=== PATIENT | male | born 1965 | race Caucasian/White ===

== ENCOUNTER 2017-01-14 15:16 | Emergency (ER) | payer MEDICARE | END 2017-01-14 18:12 | disposition home or self-care (01) | LOC: D.ER 15:16 | DX: S05.01XA Injury of conjunctiva and corneal abrasion without foreign body, right eye, initial encounter (principal); W26.8XXA Contact with other sharp object(s), not elsewhere classified, initial encounter; Y93.89 Activity, other specified; Y92.89 Other specified places as the place of occurrence of the external cause; S05.61XA Penetrating wound without foreign body of right eyeball, initial encounter; F17.200 Nicotine dependence, unspecified, uncomplicated; E11.9 Type 2 diabetes mellitus without complications; F31.89 Other bipolar disorder ==

== ENCOUNTER 2017-02-13 19:08 | Inpatient (IN) | payer MEDICARE ==
[~2017-02-13] VITALS: Ht 193 cm; Wt 106.8 kg
[2017-02-13 19:39] LABS: BASOPHILS 0.2 % (0-2); EOSINOPHILS 1.2 % (0-7); HEMATOCRIT 49.9 % (42.0-54.0); IMMATURE GRANULOCYTES 0.2 % (0-5); LYMPHOCYTES 25.7 % (15-50); MCH 34.7 pg (26.0-34.0); MCHC 36.1 g/dL (31.0-37.0); MCV 96.3 fL (80.0-100.0); MEAN PLATELET VOLUME 11.3 fL (7.4-10.4); MONOCYTES 8.7 % (2-11); PLATELET COUNT 108 10x3/uL (130-400); RBC 5.18 10x6/uL (4.20-6.10); RDW 13.7 % (11.5-14.5); WBC 11.5 10x3/uL (4.8-10.8)
[2017-02-13 19:49] LABS: APPEARANCE CLEAR (CLEAR); BILIRUBIN NEGATIVE (NEGATIVE); COLOR YELLOW (YELLOW); GLUCOSE 500 mg/dL (NEGATIVE); KETONE NEGATIVE (NEGATIVE); LEUKOCYTE ESTERASE NEGATIVE (NEGATIVE); NITRITE NEGATIVE (NEGATIVE); PROTEIN NEGATIVE (NEGATIVE); SPECIFIC GRAVITY 1.015 (1.005-1.020); UROBILINOGEN NORMAL (NORMAL)
[2017-02-13 19:55] LABS: BACTERIA FEW /hpf (NONE SEEN); EPITHELIAL CELLS RARE /hpf (0-5); RED CELLS - URINE RARE /hpf (0-5); WHITE CELLS - URINE RARE /hpf (0-5)
[2017-02-13 20:21] LABS: ALBUMIN 3.5 g/dL (3.4-5.0); ALKALINE PHOSPHATASE 169 U/L (46-116); ALT (SGPT) 55 U/L (10-68); BILIRUBIN - TOTAL 0.42 mg/dL (0.2-1.3); CALC OSMOLALITY 282 mosm/kg (275-300); CALCIUM 8.4 mg/dL (8.5-10.1); CARBON DIOXIDE 25.7 mmol/L (21.0-32.0); CHLORIDE - SERUM 101 mmol/L (98-107); CKMB 2.5 U/L (0.0-3.6); CREATINE KINASE 257 UL (21-232); CREATININE - SERUM 0.8 mg/dL (0.6-1.3); GLUCOSE 257 mg/dL (74-106); POTASSIUM - SERUM 3.6 mmol/L (3.5-5.1); PROTEIN - SERUM 7.4 g/dL (6.4-8.2); SODIUM 137 mmol/L (136-145); THYROID STIMULATING HORMONE 2.32 uIU/mL (0.36-3.74); TROPONIN-I < 0.017 ng/mL (0.000-0.060); UREA NITROGEN 12 mg/dL (7-18); eGFR NON AFRICAN AMERICAN > 90 mL/min (90-120)
--- NOTE | 2017-02-13 22:25 | NUR ---
RECIEVED REPORT FROM RN IN ER ABOUT PATIENT. AWAITING PT ARRIVAL.
[2017-02-13 22:40] VITALS: BP 139/97
--- NOTE | 2017-02-13 22:40 | NUR ---
PT ARRIVED TO UNIT VIA STRETCHER, MOVED SELF TO ICU BED. PIV IN R WRIST AND R FA. R FA WITH NS @ 150 AND CARDIZEM AT 5 ON ARRIVAL - THIS WAS TURNED UP TO 10MG/HR PER ORDERS. ROCHEPHIN HAD FINISHED IN PIV R WRIST, THIS WAS REVMOVED AND SALINE LOCKED. DENIES PAIN, THOUGH COMPLAINED OF DISCOMFORT TO RIGHT RIB AREA, BUT NOT IN PAIN PER PATIENT. PERLLA. PPP. S1S2 AUSCULTATED, A. FIB. NOTED ON MONITOR AT RATE OF 81. RR EVEN AND SHALLOW, LEFT LOBES WITH CRACKLES, RUL, RML CLEAR, RLL DIMINISHED, RATE OF 12 PER MIN.. BP 139/97. BS ACTIVE X4, ABDOMEN NOMAL FOR PATIENT ROUND AND SOFT - STATES THAT ITS NOT TENDER YET GRIMACES TO TOUCH, STATES HAS BEEN PASSING GAS TODAY AND HAD A BM THIS AM. ARRIVED ON NC @ 2.5L AND SPO2 97%. TEMP 98.4 TEMPORALLY. ARRIVED WITH SOME PERSONAL BELONGINGS, FLIP FLOPS, LEATHER BELT, BLUE JEANS, WALLET (REFUSED TO SEND TO SAFE, STATES NOTHING OF VALUE IN WALLET I.E. MONEY), SILVER BRACLET, LG SMARTPHONE AND TRIAGE CLINICIAN FOR PHONE. DAUGHTER IN ROOM SHORTLY AFTER ARRIVAL. ANSWERED ALL QUESTIONS AND PT STABLE. WILL CPOC.
[2017-02-13 22:53] LABS: CKMB 1.2 U/L (0.0-3.6); CREATINE KINASE 205 UL (21-232); TROPONIN-I 0.024 ng/mL (0.000-0.060)
[2017-02-13 23:00] VITALS: BP 143/97
[2017-02-13 23:02] VITALS: BP 139/97; BMI 27.9
[2017-02-13] MEDS ORDERED: SEROQUEL400 MG PO (23:06)
[2017-02-13] MEDS ORDERED: LITHIUM CARBON300 MG PO (23:06)
[2017-02-13] MEDS ORDERED: KLONOPIN1 MG PO (23:07)
[2017-02-13] MEDS ORDERED: AMBIEN5 MG PO (23:08)
[2017-02-13] MEDS ORDERED: GLUCOPHAGE500 MG PO (23:10)
--- NOTE | 2017-02-13 23:42 | NUR ---
DAUGHTER REQUESTED PATIENT HAVE A FOOD TRY BEFORE SHE LEFT, THIS WAS PROVIDED TO THE PATIENT AND SOMETHING TO DRINK WELL. PT DENIES ANY OTHER NEEDS ATT. BED LOW AND LOCKED, CALL LIGHT IN REACH. WILL CPOC.
[2017-02-14] VITALS (24 sets, daily range): BP systolic 88–139; BP diastolic 0–91; Ht 193 cm; Wt 106.8 kg
--- NOTE | 2017-02-14 01:14 | NUR ---
SLEEPING, VSS, BED LOW AND LOCKED, CALL LIGHT IN REACH. WILL CPOC.
--- NOTE | 2017-02-14 03:00 | NUR ---
REASSESSMENT COMPLETE, PLEASE SEE FLOW SHEETS FOR DETAILS. DENIES PAIN/NEEDS ATT. BED LOW AND LOCKED, CALL LIGHT IN REACH. VSS, WILL CPOC.
--- NOTE | 2017-02-14 05:00 | NUR ---
C/O PAIN 7/10 IN RIGHT RIB AREA, WILL CALL E.R. ADMITTING MD FOR PAIN MED ORDERS. VSS ATT, ECG SHOWS CONVERSION FROM A.FIB. TO SR RATE OF 58. BED LOW AND LOCKED, CALL LIGHT IN REACH. WILL CPOC.
--- NOTE | 2017-02-14 05:10 | NUR ---
ATTEMPTED TO REACH E.R. DOC, WAS UNSUCCESSFUL, WILL TRY AGAIN.
[2017-02-14 05:17] LABS: CKMB 1.2 U/L (0.0-3.6); CREATINE KINASE 136 UL (21-232)
[2017-02-14 05:18] LABS: TROPONIN-I < 0.017 ng/mL (0.000-0.060)
--- NOTE | 2017-02-14 05:20 | NUR ---
WAS ABLE TO REACH Arlen MARTI, NEW ORDERS RECIEVED FOR PAIN MEDS.
--- NOTE | 2017-02-14 08:26 | NUR ---
SPO2 86% ON 4LNC, STARTED I.S. MS GIVEN FOR R SIDED RIB PAIN. PT UNWILLING TO COUGH AND DEEP BREATH. DR URRUTIA NOTIFIED.
--- NOTE | 2017-02-14 09:43 | NUR ---
DR SHORE HERE.
[2017-02-14 12:44] LABS: CKMB 0.9 U/L (0.0-3.6); CREATINE KINASE 98 UL (21-232); TROPONIN-I 0.018 ng/mL (0.000-0.060)
--- NOTE | 2017-02-14 15:07 | NUR ---
PT CONTINUES TO HAVE DIFFICULTY WITH COUGH AND DEEP BREATH. OOB AND AMB WITH 4LO2. SAT UP IN CHAIR. ENCOURAGED TO COUGH AND DEEP BREATH.
--- NOTE | 2017-02-14 16:28 | NUR ---
SPO2 88% ON 4LNC, PT UP IN CHAIR. PT VOIDED 1000ML CL YELLOW URINE. ENCOURAGED PT TO COUGH AND DEEP BREATH. ENCOURAGED PT TO USE I.S. PT COUGHS UP YELLOW THICK SPUTUM. 90% AFTER COUGHING AND DEEP BREATHING.
--- NOTE | 2017-02-14 16:54 | NUR ---
HD IN PROGRESS.
--- NOTE | 2017-02-14 19:05 | NUR ---
REPORT RECIEVED, SHIFT ASSESSMENT COMPLETE, PT IS ALERT AND ORIENTED, ON 5L NC WITH 92% O2 SAT. CRACKLES HEARD IN B/L UPPER LOBES, DIMINISHED IN B/L LOWER LOBES, S1S2, CM-NSR, PATENT RIGHT FA PIV WITH NS INFUSING VIA PUMP, PATENT RIGHT WRIST PIV S/L, ABDOMEN IS SOFT AND ROUND WITH ACTIVE BS, URINAL AT BEDSIDE, ALL PPP, VSS, CALL LIGHT IN REACH
--- NOTE | 2017-02-14 21:15 | NUR ---
FAMILY AT BEDSIDE, MARBELLA GIVEN
--- NOTE | 2017-02-14 23:12 | NUR ---
REASSESSMENT COMPLETE, NO CHANGES NOTED, PT RESTING AT THIS TIME, DENIES ANY WANTS OR NEEDS, VSS, CALL LIGHT IN REACH
[2017-02-15] VITALS (24 sets, daily range): BP systolic 87–158; BP diastolic 62–102
--- NOTE | 2017-02-15 01:02 | NUR ---
NO NEEDS NOTED AT THIS TIME, WILL CON'T TO MONITOR
--- NOTE | 2017-02-15 03:01 | NUR ---
REASSESSMENT COMPLETE, NO CHANGES NOTED, LAB IN ROOM TO DRAW AM LAB, PT TOLERATED WELL, NO OTHER NEEDS NOTED, VSS, CALL LIGHT IN REACH
[2017-02-15 03:12] LABS: BASOPHILS 0 % (0-2); EOSINOPHILS 1.4 % (0-7); HEMATOCRIT 41.2 % (42.0-54.0); IMMATURE GRANULOCYTES 0.1 % (0-5); LYMPHOCYTES 24.1 % (15-50); MCH 33.6 pg (26.0-34.0); MCHC 33.7 g/dL (31.0-37.0); MEAN PLATELET VOLUME 11.3 fL (7.4-10.4); MONOCYTES 8.4 % (2-11); RDW 13.4 % (11.5-14.5)
[2017-02-15 03:18] LABS: HEMOGLOBIN 13.9 g/dL (13.5-17.5); MCV 99.5 fL (80.0-100.0); PLATELET COUNT 52 10x3/uL (130-400); RBC 4.14 10x6/uL (4.20-6.10); WBC 7.2 10x3/uL (4.8-10.8)
[2017-02-15 03:22] LABS: CALC OSMOLALITY 281 mosm/kg (275-300); CALCIUM 7.8 mg/dL (8.5-10.1); CARBON DIOXIDE 31.8 mmol/L (21.0-32.0); CHLORIDE - SERUM 105 mmol/L (98-107); CREATININE - SERUM 0.8 mg/dL (0.6-1.3); POTASSIUM - SERUM 3.5 mmol/L (3.5-5.1); SODIUM 139 mmol/L (136-145); UREA NITROGEN 10 mg/dL (7-18); eGFR NON AFRICAN AMERICAN > 90 mL/min (90-120)
[2017-02-15 03:27] LABS: GLUCOSE 184 mg/dL (74-106)
[2017-02-15 03:45] LABS: PLATELET ESTIMATE DECREASED; PLATELET MORPHOLOGY NORMAL PLT MORPH
--- NOTE | 2017-02-15 05:00 | NUR ---
PT COMPLAINING OF PAIN ON THE RIGHT SIDE TREATED WITH PAIN MEDS ORDERED. WILL CONTINUE TO MONITOR PT.
[2017-02-15 05:25] LABS: UDS - AMPHET NEGATIVE QUAL (NEGATIVE); UDS - BARB NEGATIVE QUAL (NEGATIVE); UDS - BENZO NEGATIVE QUAL (NEGATIVE); UDS - COCAINE NEGATIVE QUAL (NEGATIVE); UDS - METH NEGATIVE QUAL (NEGATIVE); UDS - OPIATE POSITIVE QUAL (NEGATIVE); UDS - PCP NEGATIVE QUAL (NEGATIVE); UDS - THC NEGATIVE QUAL (NEGATIVE)
--- NOTE | 2017-02-15 07:00 | NUR ---
PT AWAKE ALERT AND ORIENTED X4, FOLLOWS COMMANDS WITH NO DEFICITS NOTED. NORMAL SINUS ON MONITOR. O2 DECREASED TO 4L AND PT TOLERATING WELL WITH O2 SAT >95%. PT USING IS AND PULLING 750 WITH RT AT BEDSIDE, ENCOURAGING PT TO TURN COUGH AND DEEP BREATHE FREQUENTLY. DENIES PAIN AT THIS TIME. PT ABLE TO GET UP OUT OF BED TO USE URINAL INDEPENDENTLY. DR URRUTIA SAW PT AND STATES THAT IF OTHER PHYSICIANS AGREE TODAY PT MAY TRANSFER TO FLOOR. COMPLETE SHIFT ASSESSMENT DOCUMENTED PER FLOWSHEET. WILL CONTINUE TO MONITOR
--- NOTE | 2017-02-15 08:00 | NUR ---
PT SAT UP AND ATE BREAKFAST INDEPENDENTLY. NO CHANGES FROM PREVIOUS NOTE. CALL LIGHT WITHIN REACH, WILL CONTINUE TO MONITOR
--- NOTE | 2017-02-15 10:00 | NUR ---
PT UP ON SIDE OF BED TO URINAL INDEPENDENTLY. BREATHING LABORED WHEN TRANSFERRING TO SIDE OF BED. O2 SAT REMAINS STABLE. ENCOURAGED PT TO TAKE IT SLOW WHEN MOVING AND DEEP BREATHE.
--- NOTE | 2017-02-15 11:30 | NUR ---
PT USING YAUNKER SUCTION WHILE COUGHING UP SPUTUM. WORKING ON USING IS AND PULLING 1500 AT THIS TIME. O2 SAT STABLE. SAT UP IN BED AND EATING LUNCH INDEPENDENTLY
--- NOTE | 2017-02-15 11:47 | NUR ---
* Is the patient Alert and Oriented? Yes 0 * How many steps to enter\exit or inside your home? 8 0 * PCP Dr. Grant in [place] 0 * Pharmacy [facility] on [place] & [facility] 0 * Preadmission Environment Home with Family 0 * ADLs Independent 0 * List name and contact numbers for known caregivers / representatives who currently or will assist patient after discharge: Daughter - Lesley Russell [phone] 0 * Additional services required to return to the preadmission environment? No 0 * Can the patient safely return to the preadmission environment? Yes 0 * Has this patient been hospitalized within the prior 30 days at any hospital? No Patient Name: KATELYN FORMAN Admission Status: ER Accout number: [id number] Admission Date: 02-13-2017 : 1965 Admission Diagnosis: Attending: EUGENIA Current LOS: 2 Anticipated DC Date: 02-17-2017 Planned Disposition: Home Primary Insurance: MEDICARE A & B Discharge Planning Comments: CM met with patient to assess dc plans/needs. Patient states he lives with his adult daughter, Lesley. He reports he is independent with all ADL's & IADL's. He does not use any assistive devices and has not had home health services in the past. At dc, he will return home with his daughter. No needs identified or verbalized at this time. CM will follow. Seismic Computer: Sasha Barron
--- NOTE | 2017-02-15 13:20 | NUR ---
PT DENIES PAIN OR DISCOMFORT AT THIS TIME. VITAL SIGNS STABLE. WILL CONTINUE TO MONITOR CLOSELY.
--- NOTE | 2017-02-15 14:26 | CN ---
PATIENT NAME:KATELYN FORMAN MEDICAL RECORD: [id number] : 63 LOCATION:[facility]YANA[facility].2307 ADMIT DATE: 02/13/17 ACCOUNT: [id number] CONSULTING PHYSICIAN: JED GONZALEZ MD REFERRING PHYSICIAN: KRISTINE URRUTIA DO DATE OF CONSULTATION: 02/14/2017 Psychiatric Consultation IDENTIFYING DATA: The patient is 51 years old and he is admitted to the hospital on a voluntary basis. CHIEF COMPLAINT: Pneumonia. HISTORY OF PRESENT ILLNESS: The patient presented to the hospital today with atrial fibrillation, syncope and a left lower lobe infiltrate. He is admitted to the intensive care for evaluation and treatment. The patient has a psychiatric history and has been [place] a psychiatrist [place]. He says he takes lithium, Seroquel, Klonopin and Ambien. Says he has been out of his medications for several weeks with the exception of the lithium, which he has been taking a modest amount. He has no psychotic symptoms. No saritha and no depression, no evidence of acute risk to himself or others. MENTAL STATUS EXAMINATION: The patient is awake, alert and oriented to person, place, time and situation. His mood is euthymic. His affect appropriate. Thought processes are goal directed. Memory, concentration and abstract abilities are intact. He has no thoughts of harming himself or others or psychotic symptoms. ASSESSMENT: 1. Bipolar disorder by history. 2. Alcohol abuse. PLAN: The patient is not appropriate to take a benzodiazepine or Ambien, given his history of alcohol abuse. He may or may not have an accurate legitimate diagnosis of bipolar disorder. He is certainly not showing any symptoms or evidence of the disease now. I am going to restart him on lithium, but at a lower dose of 300 mg twice daily and would recommend that a lithium level be obtained in a few days with the goal of titrating him up to about 0.8 mEq. In addition to this, I am not going to give him 800 mg of Seroquel. It is highly sedating, very much favored by substance abusers and alcoholics and this patient has pneumonia. I do not want to suppress respiration. With no evidence of psychotic symptoms, I am going to start him on a lower dose and will let additional adjustments in his psychiatric medications be made by his outpatient psychiatrist at [facility]. TRANSINT:[id number] Voice Confirmation ID: [id number] DOCUMENT ID: [id number] CONSULT REPORT [id number] KATELYN FORMAN PETER MD at 1426 CC: [id number] DICTATION DATE: 02/14/17 1405 QUARTER SEAMER: 02/14/17 1542 ADM IN [place] [address] [place] [address]
--- NOTE | 2017-02-15 15:00 | NUR ---
NO CHANGES IN PT STATUS FROM PREVIOUS NOTE. VITAL SIGNS STABLE AND O2 SAT REMAINS WNL ON 3L NC. WILL CONTINUE TO MONITOR
--- NOTE | 2017-02-15 16:11 | CN ---
PATIENT NAME:KATELYN FORMAN MEDICAL RECORD: [id number] : 63 LOCATION:YI.2307 ADMIT DATE: 02/13/17 ACCOUNT: [id number] CONSULTING PHYSICIAN: RUBEN SHORE MD REFERRING PHYSICIAN: KRISTINE URRUTIA DO DATE OF CONSULTATION: 02/14/2017 HISTORY OF PRESENT ILLNESS: A 51-year-old gentleman with no known history of coronary artery disease, has a history of diabetes mellitus, bipolar disorder, has been feeling bad for about 3 or 4 days, had a tank syncopal episode. He presents to the ER and found to be in atrial fibrillation with rapid ventricular response as well as left lower lobe pneumonia, converted nicely with IV Cardizem. He is having some splinting from a combination of pneumonitis and fall. We are asked to see him concerning his cardiovascular status. PAST MEDICAL HISTORY: Includes: 1. History of bipolar disorder. 2. Diabetes mellitus. ALLERGIES: None known. MEDICATIONS: Typically include Seroquel 800 mg at night, lithium 1200 mg a day, Ambien 5 mg p.o. q.h.s., Klonopin 4 mg p.o., metformin 500 mg b.i.d. SOCIAL HISTORY: Lives here in [place], smokes about a pack a day. No set exercise program. He takes care of all of his ADLs. REVIEW OF SYSTEMS: The patient reports easy bruising but reports no swollen glands. The patient reports no fever, no night sweats, no significant weight gain, no significant weight loss. No significant exercise tolerance. The patient reports no dry eyes, no irritation, no vision change. Patient reports no difficulty hearing and no ear pain. Patient reports no frequent nose bleeds or nose and sinus problems. Patient reports on arm pain on exertion. No shortness of breath while lying down. No history of heart murmur. Patient reports no cough, no wheezing or coughing up blood. Patient reports no abdominal pain, no vomiting. Normal appetite. No diarrhea and not vomiting blood. No nausea and no constipation. Patient reports no incontinence. No difficulty urinating. No hematuria. No increased frequency. Patient reports no muscle aches. No weakness, no arthralgias, no back pain. No swelling of the extremities. Patient reports no abnormal mole, no jaundice, no rashes. Reports no loss of consciousness. No weakness and no numbness. No seizures, dizziness, or headaches. The patient reports no depression, no sleep disturbance, feeling safe in a relationship and no alcohol abuse. Patient reports on fatigue. Reports no runny nose or sinus pressure. No itching, no hives, and no frequent sneezing. PHYSICAL EXAMINATION: GENERAL: Middle-aged gentleman in no acute distress. VITAL SIGNS: Pulse currently is 68 and regular, blood pressure 132/88. HEENT: Normocephalic, atraumatic. NECK: No JVD or bruit. HEART: Regular. LUNGS: Larsen clear. ABDOMEN: Soft, nontender. EXTREMITIES: Pulse 2+ with no edema. CONSULT REPORT [id number] KAETLYN FORMAN DIAGNOSTIC DATA: ECG currently shows normal sinus rhythm. IMPRESSION: Suspect atrial fibrillation is secondary to underlying pneumonitis, converted nicely to Cardizem. We will switch this to p.o. and we would probably treat this for 4-6 weeks similar to the postop CABG afib. Echographic study has been ordered. TRANSINT:[id number] Voice Confirmation ID: [id number] DOCUMENT ID: [id number] RUBEN SHORE MD at 1611 CC: [id number] DICTATION DATE: 02/14/17 1020 INTERN PRODUCT MARKETING MANAGER: 02/14/17 1746 ADM IN [id number] [place] [address]
--- NOTE | 2017-02-15 17:00 | NUR ---
EMPTIED URINAL FOR PT. HE IS ABLE TO STAND TO URINATE INDEPENDENTLY AND REPOSITION BACK IN BED. NO ACUTE CHANGES IN PT STATUS AT THIS TIME. VITAL SIGNS STABLE. PT ENCOURAGED TO CONTINUE USING IS AND DEEP BREATHING. WILL CONTINUE TO MONITOR.
--- NOTE | 2017-02-15 21:15 | NUR ---
VISITORS AT BEDSIDE, UPDATE GIVEN, WILL CON'T TO MONITOR
--- NOTE | 2017-02-15 23:05 | NUR ---
REASSESSMENT COMPLETE, NO CHANGES NOTED, PT RESTING COMFORTABLY AT THIS TIME, VSS, CALL LIGHT IN REACH
[2017-02-16] VITALS (12 sets, daily range): BP systolic 98–158; BP diastolic 69–94
--- NOTE | 2017-02-16 01:00 | NUR ---
NO NEEDS NOTED AT THIS TIME, PT RESTING COMFORTABLY, VSS. CALL LIGHT IN REACH
--- NOTE | 2017-02-16 03:17 | NUR ---
RAD IN ROOM FOR DAILY CXR
[2017-02-16 04:12] LABS: BASOPHILS 0.2 % (0-2); EOSINOPHILS 0.9 % (0-7); HEMATOCRIT 41.7 % (42.0-54.0); HEMOGLOBIN 14.5 g/dL (13.5-17.5); IMMATURE GRANULOCYTES 0.2 % (0-5); LYMPHOCYTES 25.9 % (15-50); MCH 34.1 pg (26.0-34.0); MCHC 34.8 g/dL (31.0-37.0); MCV 98.1 fL (80.0-100.0); MEAN PLATELET VOLUME 12.2 fL (7.4-10.4); MONOCYTES 9.3 % (2-11); NEUTROPHILS 63.5 % (40-80); PLATELET COUNT 61 10x3/uL (130-400); RBC 4.25 10x6/uL (4.20-6.10); RDW 13.4 % (11.5-14.5); WBC 5.8 10x3/uL (4.8-10.8)
[2017-02-16 04:21] LABS: APTT 33.6 SECONDS (22.8-39.4); INR 1.05 (0.85-1.17); PROTIME 13.6 SECONDS (11.6-15.0)
[2017-02-16 04:22] LABS: D-DIMER-QUANTITATIVE 1.6 ug/mLFEU (0.20-0.54)
[2017-02-16 04:31] LABS: ALBUMIN 2.7 g/dL (3.4-5.0); ALKALINE PHOSPHATASE 123 U/L (46-116); ALT (SGPT) 35 U/L (10-68); BILIRUBIN - TOTAL 0.53 mg/dL (0.2-1.3); CALC OSMOLALITY 281 mosm/kg (275-300); CALCIUM 8.3 mg/dL (8.5-10.1); CARBON DIOXIDE 30.5 mmol/L (21.0-32.0); CHLORIDE - SERUM 105 mmol/L (98-107); CREATININE - SERUM 0.7 mg/dL (0.6-1.3); LDH 151 U/L (85-227); POTASSIUM - SERUM 3.2 mmol/L (3.5-5.1); PROTEIN - SERUM 6.1 g/dL (6.4-8.2); SODIUM 142 mmol/L (136-145); UREA NITROGEN 8 mg/dL (7-18); eGFR NON AFRICAN AMERICAN > 90 mL/min (90-120)
[2017-02-16 04:37] LABS: GLUCOSE 124 mg/dL (74-106)
--- NOTE | 2017-02-16 05:09 | NUR ---
PT DENIES ANY NEEDS OR WANTS AT THIS TIME, WILL CON'T TO MONITOR
--- NOTE | 2017-02-16 07:00 | NUR ---
REPORT RECIEVED FROM OFF COMING NURSE. PT LYING IN BED RESTING. C/O PAIN WHENEVER COUGHING. 11/24. PRN NORCO GIVEN. AARON INSPITORY WHEEZING WITH LLL DEMINISHED LUNGS SOUNDS. EDUCATED TO USE IS. PIV TO RIGHT WRIST AND RIGHT FA. SEE IV FLOW SHEET. BOTH PATENT AND DRESSING C/D/I. AFTER ASSESSMENT, PT STATED HE WAS TIRED. AFTER HE ATE 100% OF HIS BREATFAST, LIGHTS DIMMED AND PT STATED HE WAS GOING TO GET SOME SLEEP. PT RESTING WITH EYES CLOSED WITH 0 S/SX OF DISTRESS/DISCOMFORT NOTED. BREATHING NORMAL AND UNLABORED. CALL LIGHT IN REACH.
--- NOTE | 2017-02-16 08:55 | NUR ---
NUTRITION MONITORING & EVAL CHART REVIEWED, NURSING REPORTS PT WITH 100% INTAKE ADA DIET. NOTE POSSIBLE MOVE TO FLOOR. RD FOLLOWING
--- NOTE | 2017-02-16 10:00 | NUR ---
PT RESTING WITH EYES CLOSED WITH 0 S/SX OF DISTRESS/DISCOMFORT NOTED. BREATHING NORMAL AND UNLABORED. CALL LIGHT IN REACH.
--- NOTE | 2017-02-16 11:00 | NUR ---
OK TO TRANSFER OUT OF ICU TO A REGULAR ROOM.
--- NOTE | 2017-02-16 11:30 | NUR ---
REFUSED BED BATH WHENEVER OFFERED. "ILL TAKE A WARM SHOWER WHENEVER I GET TO A REGULAR ROOM."
--- NOTE | 2017-02-16 14:00 | NUR ---
DAUGHTER AND BROTHER IN ROOM VISITING WITH PT. QUESTIONS ANSWERED. STILL WAITING ON ROOM FOR TRANSFER. CALL LIGHT IN REACH. BREATHING NORMAL AND UNLABORED. WILL CONT POC.
--- NOTE | 2017-02-16 14:41 | EC ---
PATIENT:KATELYN FORMAN DATE OF SERVICE: 02/13/17 SEX: M MEDICAL RECORD: [id number] DATE OF : 63 LOCATION:[facility] [place] AGE OF PATIENT: 51 ADMISSION DATE: 02/13/17 REFERRING PHYSICIAN: INTERPRETING PHYSICIAN: RUBEN SHORE MD ECHOCARDIOGRAM REPORT ECHO CHARGES 4 ECHO COMPLETE CLINICAL DIAGNOSIS: A-FIB ECHOCARDIOGRAPHIC MEASUREMENTS (adult normal given) AC root (d.<3.7cm) 3.4 cm LV Septum d (<1.2 cm> 1.3 cm Valve Excursion 2.0 cm LV Septum (systole) 2.0 cm Left Atria (s.<4.0cm> 3.7 cm LVPW d(<1.2cm) 1.3 cm RV (d.<2.3cm) 3.2 cm LVPW (sytole) 2.2 cm LV diastole(<5.6CM) 5.4 cm MV E-F(>70mm/sec) cm LV systole 2.6 cm LVOT Diameter 1.9 cm MV exc.(>10mm) cm Est.ejection fraction (50-75%) % Pericardial Effusion N DOPPLER: LVIT cm/sec A 68.0 cm/sec E 112 cm/sec LA cm/sec RVSP 38.0 mmHg LVOT 160 cm/sec AOP1/2T m/s Asc. Ao 154 cm/sec RVOT 69.0 cm/sec RA cm/sec PA 113 cm/sec AV Gradient Peak 9.5 mmHg AV Mean 4.8 mmHg AV Area 3.1 cm MV Gradient Peak 5.9 mmHg MV Mean 1.6 mmHg MV Area cm COMMENTS: Raw Products Director: Radha DOEOE Studio Artist: 3 Dr. Goetz TAPE# PACS DATE OF SERVICE: 02/15/2017 Adequate 2D echo, color flow and spectral Doppler, and M-mode. Borderline LVH. LV internal dimension normal. Wall motion is normal. EF greater than 55%. Aortic valve is tricuspid. No stenosis by Doppler interrogation. The left atrium is normal. Mitral valve shows no prolapse. Trivial MR. Right-sided chamber is grossly normal. Trivial TR. TRANSINT:[id number] Voice Confirmation ID: [id number] DOCUMENT ID: [id number] ECHOCARDIOGRAM REPORT [id number] KATELYN FORMAN RUBEN SHORE MD at 1441 CC: [id number] DICTATION DATE: 02/15/17 1436 HEALTHCARE MANAGEMENT CONSULTANT: 02/15/17 1856 ADM IN [place] [id number] [place] [address]
--- NOTE | 2017-02-16 16:30 | NUR ---
REPORT CALLED INTO NATALIYA CAMPO. ALL BELONGINS ACCOUNTED FOR. LEFT VIA WHEELCHAIR WITH O2 AT 2L VIA NC. 0 S/SX OF DISTRESS/DISCOMFORT NOTED. BREATHING NORMAL AND UNLABORED. PT IN A PLEASANT MOOD.
--- NOTE | 2017-02-16 16:46 | NUR ---
TRANSFER FROM ICU BY W/C. OREINTED TO ROOM. CALL LIGHT IN REACH. WILL CONT. PLAN OF CARE.
--- NOTE | 2017-02-16 19:31 | NUR ---
RECEIVED REPORT, WILL ASSUME CARE OF PT, PT WATCHING TV, DENIES ANY NEEDS AT THIS TIME, BED IS LOW, SRX2, CALL LIGHT IN REACH, WILL CONTINUE PLAN OF CARE
--- NOTE | 2017-02-17 03:13 | NUR ---
ASSESSMENT COMPLETE, PT SLEEPING ON L.SIDE, BED IS LOW, SRX2, CALL LIGHT IN REACH, WILL CONTINUE PLAN OF CARE
[2017-02-17 04:19] LABS: BASOPHILS 0.2 % (0-2); EOSINOPHILS 1.3 % (0-7); HEMATOCRIT 42.2 % (42.0-54.0); HEMOGLOBIN 14.6 g/dL (13.5-17.5); IMMATURE GRANULOCYTES 0.3 % (0-5); LYMPHOCYTES 26.5 % (15-50); MCH 33.7 pg (26.0-34.0); MCHC 34.6 g/dL (31.0-37.0); MCV 97.5 fL (80.0-100.0); MEAN PLATELET VOLUME 11.3 fL (7.4-10.4); MONOCYTES 9.5 % (2-11); NEUTROPHILS 62.2 % (40-80); PLATELET COUNT 67 10x3/uL (130-400); RBC 4.33 10x6/uL (4.20-6.10); RDW 13.2 % (11.5-14.5)
[2017-02-17 04:48] LABS: ALBUMIN 2.6 g/dL (3.4-5.0); ALKALINE PHOSPHATASE 147 U/L (46-116); BILIRUBIN - TOTAL 0.39 mg/dL (0.2-1.3); CALCIUM 8.2 mg/dL (8.5-10.1); CARBON DIOXIDE 29.2 mmol/L (21.0-32.0); CHLORIDE - SERUM 105 mmol/L (98-107); CREATININE - SERUM 0.7 mg/dL (0.6-1.3); GLUCOSE 121 mg/dL (74-106); MAGNESIUM - SERUM 1.6 mg/dL (1.8-2.4); PHOSPHOROUS 3.7 mg/dL (2.5-4.9); POTASSIUM - SERUM 3.5 mmol/L (3.5-5.1); PROTEIN - SERUM 5.6 g/dL (6.4-8.2); SODIUM 141 mmol/L (136-145); eGFR NON AFRICAN AMERICAN > 90 mL/min (90-120)
[2017-02-17 04:50] LABS: ALT (SGPT) 47 U/L (10-68); CALC OSMOLALITY 280 mosm/kg (275-300); UREA NITROGEN 11 mg/dL (7-18)
--- NOTE | 2017-02-17 05:13 | NUR ---
MAG. 1.6-STARTED REPLACEMENT ORDER
[2017-02-17 06:22] VITALS: BP 124/73
--- NOTE | 2017-02-17 07:14 | NUR ---
PT LAYING TO LEFT SIDE SLEEPING ARROUSES EASILY ASKED FOR DIET LEMON SHUNGNAK, PROVIDED. DENIES OTHER NEEDS WILL CONT TO MONITOR
[2017-02-17 08:27] VITALS: BP 117/69
[2017-02-17 12:05] VITALS: BP 127/84
[2017-02-17 16:43] VITALS: BP 123/77
--- NOTE | 2017-02-17 19:00 | NUR ---
PT SITTING UP IN BED WATCHING TV FAMILY AT BEDSIDE
--- NOTE | 2017-02-17 19:27 | NUR ---
RECEIVED REPORT, WILL ASSUME CARE OF PT, PT VISITING WITH FAMILY, DENIES ANY NEEDS AT THIS TIME, BED IS LOW, SRX2, CALL LIGHT IN REACH, WILL CONTINUE PLAN OF CARE
[2017-02-17 20:00] VITALS: BP 131/75
--- NOTE | 2017-02-17 22:34 | NUR ---
ASSESSMENT COMPLETE, 023L, [id number], IV-R.WRIST,NS @ KVO, R.HAND-SL, PT IS A&O, DENIES ANY NEEDS AT THIS TIME, BED IS LOW, SRX2, CALL LIGHT IN REACH, WILL CONTINUE PLAN OF CARE
[2017-02-18] VITALS: BP 105/60
[2017-02-18 04:00] VITALS: BP 117/64
[2017-02-18 05:02] LABS: BASOPHILS 0.2 % (0-2); EOSINOPHILS 1.8 % (0-7); HEMATOCRIT 39.7 % (42.0-54.0); HEMOGLOBIN 13.9 g/dL (13.5-17.5); IMMATURE GRANULOCYTES 0.4 % (0-5); MCV 97.1 fL (80.0-100.0); MEAN PLATELET VOLUME 11.4 fL (7.4-10.4); MONOCYTES 12.8 % (2-11); NEUTROPHILS 58.8 % (40-80); PLATELET COUNT 63 10x3/uL (130-400); RBC 4.09 10x6/uL (4.20-6.10); RDW 13.2 % (11.5-14.5); WBC 5.5 10x3/uL (4.8-10.8)
[2017-02-18 05:25] LABS: ALBUMIN 2.6 g/dL (3.4-5.0); ALKALINE PHOSPHATASE 138 U/L (46-116); ALT (SGPT) 43 U/L (10-68); BILIRUBIN - TOTAL 0.29 mg/dL (0.2-1.3); CALC OSMOLALITY 277 mosm/kg (275-300); CALCIUM 8.2 mg/dL (8.5-10.1); CARBON DIOXIDE 28.3 mmol/L (21.0-32.0); CHLORIDE - SERUM 104 mmol/L (98-107); CREATININE - SERUM 0.7 mg/dL (0.6-1.3); GLUCOSE 115 mg/dL (74-106); PHOSPHOROUS 4.2 mg/dL (2.5-4.9); POTASSIUM - SERUM 3.6 mmol/L (3.5-5.1); PROTEIN - SERUM 6.1 g/dL (6.4-8.2); SODIUM 138 mmol/L (136-145); eGFR NON AFRICAN AMERICAN > 90 mL/min (90-120)
[2017-02-18 05:28] LABS: MAGNESIUM - SERUM 2.1 mg/dL (1.8-2.4); UREA NITROGEN 14 mg/dL (7-18)
--- NOTE | 2017-02-18 07:08 | NUR ---
PT SITTING UP IN BED RECEIVING BREATHING TX DENIES ANY NEEDS WILL CONT TO MONITOR
[2017-02-18] MEDS ORDERED: ZITHROMAX250 MG PO (07:20)
[2017-02-18] MEDS ORDERED: OMNICEF300 MG PO (07:20)
[2017-02-18] MEDS ORDERED: CARDIZEM CD180 MG PO (07:20)
[2017-02-18] MEDS ORDERED: TESSALON PERLE100 MG PO (07:21)
[2017-02-18] MEDS ORDERED: ALBUTEROL0.63 MG/3 INH (07:22)
[2017-02-18 08:58] VITALS: BP 132/78
--- NOTE | 2017-02-18 10:36 | NUR ---
Patient Name: KATELYN FORMAN Encounter No: [id number] : 1965 Primary Insurance: MEDICARE A & B Anticipated DC Date: 02-18-2017 Planned Disposition: Home DCP follow-up note: CM RECEIVED ORDER FOR DISCHARGE, NEBULIZER AND OXYGEN TESTING. CM MET WITH PT IN ROOM TO DISCUSS DISCHARGE NEEDS AND PLANNING. CM DISCUSSED AVAILABILITY OF HOME HEALTH, REHAB SERVICES AND MEDICAL EQUIPMENT. PT HAS NO PREFERENCE ON COMPANY FOR NEBULIZER AND OXYGEN, REPORTS HE CAN AFFORD ANY COPAYS FOR EQUIPMENT. DENIES DISCHARGE NEEDS OF HOME HEALTH OR REHAB SERVICES. DAUGHTER TO TRANSPORT HOME AT DISCHARGE. IMPORTANT MESSAGE FROM [employer] PROVIDED AND EXPLAINED. CM CALLED [facility], SPOKE TO JEANETTE WHO REPORTS BEING OUT OF NEBULIZERS. CM CALLED [facility], SPOKE TO LONNIE WHO REPORTS BEING OUT OF NEBULIZERS AND THEY ARE BACKORDERED. CM CALLED [facility], , SPOKE TO ZOILA AND PROVIDED REFERRAL INFORMATION AND FAXED REFERRAL TO [phone]. ZOILA TO BEGIN PROCESSING AND AWAITS OXYGEN TESTING. [facility] TO DELIVER NEBULIZER TO PT'S ROOM TODAY FOR DISCHARGE HOME. CM TO NOTIFY ZOILA AT [facility] IF OXYGEN IS NEEDED; IF NEEDED, FAX OXYGEN TESTING TO [phone]. Femi Maharaj, CASE MANAGEMENT
[2017-02-18 11:55] VITALS: BP 126/76
--- NOTE | 2017-02-18 15:07 | NUR ---
WENT OVER DC PAPERWORK WITH PT PT VERBALIZES UNDERSTANDING. DC BOTH PIVS WITH CATH TIPS BOTH INTACT. DC TELE AND RETURNED TO DYE CAN OPERATOR. PT REFUSED WHEELCHAIR AND WALKED OUT WITH DAUGHTER
== END 2017-02-18 15:09 | disposition home or self-care (01) | DRG 177 ==
LOC: D.ER 19:08 → D.ICU 22:03 → D.M2 02-16 16:42
PROVIDERS: Family Medicine; Internal Medicine Pulmonary Disease; Psychiatry & Neurology Psychiatry; ADMIT Family Medicine
DX: J69.0 Pneumonitis due to inhalation of food and vomit (principal); J96.01 Acute respiratory failure with hypoxia; J98.11 Atelectasis; J44.9 Chronic obstructive pulmonary disease, unspecified; F10.10 Alcohol abuse, uncomplicated; E11.9 Type 2 diabetes mellitus without complications; I48.91 Unspecified atrial fibrillation; W19.XXXA Unspecified fall, initial encounter; D69.6 Thrombocytopenia, unspecified; Z77.090 Contact with and (suspected) exposure to asbestos; E87.6 Hypokalemia; E83.42 Hypomagnesemia; F31.9 Bipolar disorder, unspecified; Z72.0 Tobacco use

== ENCOUNTER 2017-03-02 12:35 | Emergency (ER) | payer MEDICARE ==
[2017-02-14 09:55] VITALS: BMI 27.8
[~2017-03-02 12:35] MED LIST: ALBUTEROL0.63 MG/3 INH; AMBIEN5 MG PO; CARDIZEM CD180 MG PO; GLUCOPHAGE500 MG PO; KLONOPIN1 MG PO; LITHIUM CARBON300 MG PO; OMNICEF300 MG PO; SEROQUEL400 MG PO; TESSALON PERLE100 MG PO; ZITHROMAX250 MG PO
[2017-03-02 15:16] LABS: ALBUMIN 3.1 g/dL (3.4-5.0); ALKALINE PHOSPHATASE 323 U/L (46-116); ALT (SGPT) 60 U/L (10-68); BILIRUBIN - TOTAL 0.22 mg/dL (0.2-1.3); CALC OSMOLALITY 278 mosm/kg (275-300); CALCIUM 8.4 mg/dL (8.5-10.1); CARBON DIOXIDE 24.3 mmol/L (21.0-32.0); CHLORIDE - SERUM 103 mmol/L (98-107); CREATININE - SERUM 0.8 mg/dL (0.6-1.3); GLUCOSE 262 mg/dL (74-106); POTASSIUM - SERUM 4.4 mmol/L (3.5-5.1); SODIUM 135 mmol/L (136-145); UREA NITROGEN 13 mg/dL (7-18); eGFR NON AFRICAN AMERICAN > 90 mL/min (90-120)
[2017-03-02 15:21] LABS: BASOPHILS 0.2 % (0-2); EOSINOPHILS 1.5 % (0-7); HEMOGLOBIN 15.3 g/dL (13.5-17.5); IMMATURE GRANULOCYTES 0.2 % (0-5); LYMPHOCYTES 29.3 % (15-50); MCH 34.2 pg (26.0-34.0); MCHC 34.8 g/dL (31.0-37.0); MCV 98.2 fL (80.0-100.0); MEAN PLATELET VOLUME 11.9 fL (7.4-10.4); MONOCYTES 9.4 % (2-11); NEUTROPHILS 59.4 % (40-80); RBC 4.48 10x6/uL (4.20-6.10); RDW 13.8 % (11.5-14.5); WBC 5.2 10x3/uL (4.8-10.8)
[2017-03-02 15:22] LABS: PLATELET COUNT 89 10x3/uL (130-400)
== END 2017-03-02 15:48 | disposition home or self-care (01) ==
LOC: D.ER 12:35
PROVIDERS: Emergency Medicine
DX: S22.41XA Multiple fractures of ribs, right side, initial encounter for closed fracture (principal); W19.XXXA Unspecified fall, initial encounter; Y93.89 Activity, other specified; Y92.89 Other specified places as the place of occurrence of the external cause; R07.89 Other chest pain; F31.89 Other bipolar disorder; E11.9 Type 2 diabetes mellitus without complications; F17.200 Nicotine dependence, unspecified, uncomplicated

== ENCOUNTER → 2017-10-24 08:09 | Outpatient (CLI) | payer MEDICARE ==
[2017-02-14 09:55] VITALS: BMI 27.8
[~2017-10-24 08:09] MED LIST changes: +CARAFATE1 G PO
[2017-10-24 09:23] LABS: BASOPHILS 0.2 % (0-2); EOSINOPHILS 1.1 % (0-7); HEMATOCRIT 47.9 % (42.0-54.0); IMMATURE GRANULOCYTES 0.3 % (0-5); LYMPHOCYTES 15.2 % (15-50); MCHC 35.5 g/dL (31.0-37.0); MCV 95.8 fL (80.0-100.0); MEAN PLATELET VOLUME 12.3 fL (7.4-10.4); MONOCYTES 7.6 % (2-11); NEUTROPHILS 75.6 % (40-80); RDW 14.1 % (11.5-14.5); WBC 8.8 10x3/uL (4.8-10.8)
[2017-10-24 09:24] LABS: PLATELET COUNT 58 10x3/uL (130-400)
[2017-10-24 09:46] LABS: PLATELET ESTIMATE DECREASED
[2017-10-26 21:08] LABS: HCVGENO - HEP C QUANT HCV Not Detected IU/mL (())
== END | disposition home or self-care (01) ==
LOC: D.US 08:09
PROVIDERS: Internal Medicine Gastroenterology
DX: B19.20 Unspecified viral hepatitis C without hepatic coma (principal); R74.8 Abnormal levels of other serum enzymes; R79.89 Other specified abnormal findings of blood chemistry

== ENCOUNTER → 2017-10-25 07:49 | Outpatient (CLI) | payer MEDICARE ==
[2017-02-14 09:55] VITALS: BMI 27.8
== END | disposition home or self-care (01) ==
LOC: D.US 07:49
DX: B19.20 Unspecified viral hepatitis C without hepatic coma (principal); R74.8 Abnormal levels of other serum enzymes

== ENCOUNTER 2017-11-03 13:14 | Day surgery (SDC) | payer MEDICARE ==
[~2017-11-03] VITALS: Ht 193 cm; Wt 109.1 kg
--- NOTE | ~2017-11-03 | OP ---
PATIENT NAME: KATELYN FORMAN MEDICAL RECORD: [id number] :63 LOCATION:[facility] ADMISSION DATE: SURGEON: SAMMY ANDERSON MD DATE OF OPERATION: 11/03/2017 PROCEDURES: Colonoscopy with snare polypectomy, colonoscopy with hot biopsy polypectomy, colonoscopy with placement of an endoclip to achieve hemostasis. SCOPE: Olympus video colonoscope. MEDICATIONS PROVIDED: Per TIVA anesthesia. The patient received 660 mg of propofol for this procedure, O2 four liters. INDICATION FOR THE PROCEDURE: Fecal occult blood positive. FINDINGS: Informed consent was given. The patient was made comfortable with the above medications. After reaching an adequate level of sedation by slow IV push, the patient was placed on his left side. The rectal exam revealed good sphincter tone. No fissures or fistulas were appreciated. No external skin tags were seen. The colonoscope was advanced to the cecum, where the ileocecal valve and the appendiceal orifice were identified. On withdrawal of the scope, mucosa was carefully inspected. The patient had a 1-cm polyp in the cecum, which was removed with hot biopsy forceps technique. He also had a 1-cm polyp within the hepatic flexure, removed in the same fashion. In the transverse colon, a total of 6 polyps were taken in the proximal transverse as well as at 70 cm. These were all removed with hot biopsy forceps technique and ranged in size from 0.5 cm to 1.5 cm in size. On the left side of the colon, the patient had 2 very large polyps which were pedunculated and these were removed with a snare. The first polyp was 2 cm and the second was 1 cm in size. In the sigmoid colon, 2 flat polyps were removed. The larger was removed with a snare and the second one was removed with hot biopsy forceps technique. The larger polyp required a Hemoclip in order to achieve hemostasis. The patient had very mild diffuse diverticulosis without diverticulitis. Both internal and external hemorrhoids were seen with final withdrawal of the scope. IMPRESSION: 1. Cecal polyp, 1 cm in size, removed with hot biopsy forceps technique. 2. Hepatic flexure polyp, 1 cm in size, removed with hot biopsy forceps technique. 3. Six polyps removed from the transverse colon. The first grouping of 3 in the proximal transverse colon, the second at 70 cm. Polyps ranged in size from 0.5 cm to 1.5 cm and all were removed with hot biopsy forceps. 4. Two large descending colon pedunculated polyps, removed with a snare. 5. One flat 1-cm polyp removed with snare and later an endoclip was required to achieve hemostasis. The second smaller polyp of 0.5 cm was removed with hot biopsy forceps technique. 6. Mild diffuse diverticulosis without diverticulitis. 7. Mild internal and external hemorrhoids. PLAN: 1. No aspirin or anti-inflammatory drugs for 14 days. OPERATIVE REPORT [id number] KATELYN FORMAN 2. High-fiber diet. 3. Probiotics. 4. We will provide a dose of Flagyl as we did do a lot of work during this procedure. The patient will receive 500 mg IV now. TRANSINT:[id number] Voice Confirmation ID: [id number] DOCUMENT ID: [id number] SAMMY ANDERSON MD at 1421 CC: MARÍA ELENA HOBBS [id number] DICTATION DATE: 11/03/17 1637 BROKE BEATER OPERATOR: 11/03/[address] [place] [address] 11/03/17 [address] [place] [address]
[~2017-11-03 13:14] MED LIST changes: -CARAFATE1 G PO
[2017-11-03 14:03] VITALS: Ht 193 cm; Wt 109.1 kg
[2017-11-03 14:11] LABS: BASOPHILS 0.2 % (0-2); EOSINOPHILS 1.2 % (0-7); HEMATOCRIT 47.3 % (42.0-54.0); HEMOGLOBIN 16.7 g/dL (13.5-17.5); IMMATURE GRANULOCYTES 0.2 % (0-5); MCH 34.2 pg (26.0-34.0); MCHC 35.3 g/dL (31.0-37.0); MCV 96.9 fL (80.0-100.0); MEAN PLATELET VOLUME 12.8 fL (7.4-10.4); MONOCYTES 6.7 % (2-11); NEUTROPHILS 66.7 % (40-80); RBC 4.88 10x6/uL (4.20-6.10); WBC 8.3 10x3/uL (4.8-10.8)
[2017-11-03 14:15] LABS: PLATELET COUNT 77 10x3/uL (130-400)
[2017-11-03 14:16] LABS: CALC OSMOLALITY 271 mosm/kg (275-300); CALCIUM 8.6 mg/dL (8.5-10.1); CARBON DIOXIDE 24.3 mmol/L (21.0-32.0); CHLORIDE - SERUM 101 mmol/L (98-107); CREATININE - SERUM 0.8 mg/dL (0.6-1.3); POTASSIUM - SERUM 4.1 mmol/L (3.5-5.1); SODIUM 136 mmol/L (136-145); UREA NITROGEN 7 mg/dL (7-18); eGFR NON AFRICAN AMERICAN > 90 mL/min (90-120)
[2017-11-03 14:17] LABS: GLUCOSE 140 mg/dL (74-106)
[2017-11-03 14:18] LABS: INR 1.04 (0.85-1.17); PROTIME 13.2 SECONDS (11.6-15.0)
== END 2017-11-03 18:00 | disposition home or self-care (01) ==
LOC: D.OPS 13:14
PROVIDERS: Internal Medicine Gastroenterology
DX: D12.0 Benign neoplasm of cecum (principal); D12.4 Benign neoplasm of descending colon; D12.3 Benign neoplasm of transverse colon; K63.5 Polyp of colon; K57.30 Diverticulosis of large intestine without perforation or abscess without bleeding; K64.8 Other hemorrhoids; K64.4 Residual hemorrhoidal skin tags; Z01.812 Encounter for preprocedural laboratory examination

== ENCOUNTER 2017-12-14 07:05 | Outpatient (CLI) | payer MEDICARE ==
[~2017-12-14] VITALS: Ht 193 cm; Wt 106.4 kg
[2017-12-14] MEDS ORDERED: CARAFATE1 G PO (08:11)
[2017-12-14 08:18] VITALS: BP 110/82; Ht 193 cm; Wt 106.4 kg
[2017-12-14 08:31] LABS: CALC OSMOLALITY 280 mosm/kg (275-300); CALCIUM 9.4 mg/dL (8.5-10.1); CARBON DIOXIDE 26.5 mmol/L (21.0-32.0); CHLORIDE - SERUM 105 mmol/L (98-107); CREATININE - SERUM 0.8 mg/dL (0.6-1.3); GLUCOSE 114 mg/dL (74-106); POTASSIUM - SERUM 4.1 mmol/L (3.5-5.1); SODIUM 141 mmol/L (136-145); UREA NITROGEN 11 mg/dL (7-18); eGFR NON AFRICAN AMERICAN > 90 mL/min (90-120)
[2017-12-14 08:55] LABS: BASOPHILS 0.2 % (0-2); EOSINOPHILS 1.9 % (0-7); HEMATOCRIT 47.9 % (42.0-54.0); HEMOGLOBIN 16.9 g/dL (13.5-17.5); IMMATURE GRANULOCYTES 0.3 % (0-5); LYMPHOCYTES 24.3 % (15-50); MCH 33.8 pg (26.0-34.0); MCHC 35.3 g/dL (31.0-37.0); MCV 95.8 fL (80.0-100.0); MEAN PLATELET VOLUME 11.7 fL (7.4-10.4); MONOCYTES 11.8 % (2-11); NEUTROPHILS 61.5 % (40-80); PLATELET COUNT 72 10x3/uL (130-400); RDW 14.2 % (11.5-14.5); WBC 6.3 10x3/uL (4.8-10.8)
[2017-12-14 08:57] LABS: APTT 31.9 SECONDS (22.8-39.4); INR 1.06 (0.85-1.17); PROTIME 13.4 SECONDS (11.6-15.0)
== END 2017-12-14 14:20 | disposition home or self-care (01) ==
LOC: D.SP 07:05
PROVIDERS: Radiology Diagnostic Radiology
DX: R74.8 Abnormal levels of other serum enzymes (principal); D69.6 Thrombocytopenia, unspecified; K25.3 Acute gastric ulcer without hemorrhage or perforation; Z01.812 Encounter for preprocedural laboratory examination

== ENCOUNTER 2017-12-21 12:11 | Emergency (ER) | payer MEDICARE ==
[~2017-12-21] VITALS: Ht 193 cm; Wt 106.8 kg
[~2017-12-21 12:11] MED LIST changes: +CARAFATE1 G PO
[2017-12-21 12:25] VITALS: Ht 193 cm; Wt 106.8 kg
[2017-12-21 13:11] LABS: BASOPHILS 0.2 % (0-2); EOSINOPHILS 1.6 % (0-7); HEMATOCRIT 50.9 % (42.0-54.0); IMMATURE GRANULOCYTES 0.4 % (0-5); LYMPHOCYTES 17.2 % (15-50); MCH 34.5 pg (26.0-34.0); MCHC 35.4 g/dL (31.0-37.0); MCV 97.7 fL (80.0-100.0); MEAN PLATELET VOLUME 11.5 fL (7.4-10.4); MONOCYTES 7.2 % (2-11); NEUTROPHILS 73.4 % (40-80); PLATELET COUNT 81 10x3/uL (130-400); RBC 5.21 10x6/uL (4.20-6.10); RDW 13.9 % (11.5-14.5); WBC 8.6 10x3/uL (4.8-10.8)
[2017-12-21 13:25] LABS: ALBUMIN 3.5 g/dL (3.4-5.0); ALKALINE PHOSPHATASE 168 U/L (46-116); ALT (SGPT) 82 U/L (10-68); AMYLASE - SERUM 43 U/L (25-115); BILIRUBIN - TOTAL 0.74 mg/dL (0.2-1.3); CALC OSMOLALITY 281 mosm/kg (275-300); CALCIUM 9.3 mg/dL (8.5-10.1); CARBON DIOXIDE 24.5 mmol/L (21.0-32.0); CHLORIDE - SERUM 102 mmol/L (98-107); CREATININE - SERUM 0.9 mg/dL (0.6-1.3); LIPASE 101 U/L (73-393); POTASSIUM - SERUM 3.8 mmol/L (3.5-5.1); PROTEIN - SERUM 7.8 g/dL (6.4-8.2); SODIUM 136 mmol/L (136-145); UREA NITROGEN 14 mg/dL (7-18); eGFR NON AFRICAN AMERICAN > 90 mL/min (90-120)
[2017-12-21 13:32] LABS: GLUCOSE 253 mg/dL (74-106)
[2017-12-21 14:39] LABS: APPEARANCE CLEAR (CLEAR); COLOR DK YELLOW (YELLOW); NITRITE NEGATIVE (NEGATIVE); PROTEIN NEGATIVE (NEGATIVE); SPECIFIC GRAVITY 1.015 (1.005-1.020)
[2017-12-21 14:40] LABS: BACTERIA FEW /hpf (NONE SEEN); BILIRUBIN NEGATIVE (NEGATIVE); EPITHELIAL CELLS 0-5 /hpf (0-5); GLUCOSE 1000 mg/dL (NEGATIVE); KETONE NEGATIVE (NEGATIVE); WHITE CELLS - URINE OCC /hpf (0-5)
[2017-12-21 14:41] LABS: MUCUS >1+ /lpf (NONE SEEN)
[2017-12-21 17:59] VITALS: BP 144/96
== END 2017-12-21 17:55 | disposition home or self-care (01) ==
LOC: D.ER 12:11
PROVIDERS: Family Medicine
DX: R10.9 Unspecified abdominal pain (principal); E11.9 Type 2 diabetes mellitus without complications; R79.89 Other specified abnormal findings of blood chemistry; K21.9 Gastro-esophageal reflux disease without esophagitis; F17.200 Nicotine dependence, unspecified, uncomplicated

== ENCOUNTER → 2018-04-25 08:31 | Outpatient (CLI) | payer MEDICARE ==
[2017-12-21 12:25] VITALS: BMI 28.6
[2018-04-25 09:24] LABS: BASOPHILS 0.1 % (0-2); EOSINOPHILS 1.6 % (0-7); HEMATOCRIT 46.8 % (42.0-54.0); HEMOGLOBIN 16.6 g/dL (13.5-17.5); IMMATURE GRANULOCYTES 0.4 % (0-5); LYMPHOCYTES 25.3 % (15-50); MCH 34.5 pg (26.0-34.0); MCHC 35.5 g/dL (31.0-37.0); MCV 97.3 fL (80.0-100.0); MEAN PLATELET VOLUME 12.6 fL (7.4-10.4); MONOCYTES 9.3 % (2-11); NEUTROPHILS 63.3 % (40-80); PLATELET COUNT 67 10x3/uL (130-400); RBC 4.81 10x6/uL (4.20-6.10); RDW 13.6 % (11.5-14.5); WBC 8.1 10x3/uL (4.8-10.8)
[2018-04-25 09:31] LABS: INR 1.08 (0.85-1.17); PROTIME 13.6 SECONDS (11.6-15.0)
[2018-04-25 09:37] LABS: ALBUMIN 3.3 g/dL (3.4-5.0); BILIRUBIN - DIRECT 0.11 mg/dL (0.00-0.30); BILIRUBIN - INDIRECT 0.21 mg/dL (0.00-1.00); BILIRUBIN - TOTAL 0.32 mg/dL (0.2-1.3); PROTEIN - SERUM 7.2 g/dL (6.4-8.2)
== END | disposition home or self-care (01) ==
LOC: D.US 08:30
PROVIDERS: Internal Medicine Gastroenterology
DX: K74.60 Unspecified cirrhosis of liver (principal); B19.20 Unspecified viral hepatitis C without hepatic coma

== ENCOUNTER 2018-05-02 04:17 | Emergency (ER) | payer MEDICARE ==
[~2018-05-02] VITALS: Ht 193 cm; Wt 100.0 kg
[2018-05-02 04:21] VITALS: Ht 193 cm; Wt 100.0 kg
[2018-05-02 04:59] LABS: BASOPHILS 0.1 % (0-2); EOSINOPHILS 0.8 % (0-7); HEMATOCRIT 48.9 % (42.0-54.0); HEMOGLOBIN 17.1 g/dL (13.5-17.5); IMMATURE GRANULOCYTES 0.2 % (0-5); LYMPHOCYTES 16.5 % (15-50); MCH 34.3 pg (26.0-34.0); MCV 98.2 fL (80.0-100.0); MEAN PLATELET VOLUME 11.5 fL (7.4-10.4); MONOCYTES 6.6 % (2-11); NEUTROPHILS 75.8 % (40-80); RBC 4.98 10x6/uL (4.20-6.10); RDW 13.5 % (11.5-14.5); WBC 13.5 10x3/uL (4.8-10.8)
[2018-05-02 05:02] LABS: PLATELET COUNT 123 10x3/uL (130-400)
[2018-05-02 05:08] LABS: ANION GAP 12.8 mmol/L (8-16); BILIRUBIN - TOTAL 1.05 mg/dL (0.2-1.3); CALCIUM 9.6 mg/dL (8.5-10.1); CREATININE - SERUM 1.1 mg/dL (0.6-1.3); POTASSIUM - SERUM 3.8 mmol/L (3.5-5.1); PROTEIN - SERUM 7.8 g/dL (6.4-8.2)
[2018-05-02 05:18] LABS: UDS - AMPHET POSITIVE QUAL (NEGATIVE); UDS - BARB NEGATIVE QUAL (NEGATIVE); UDS - BENZO NEGATIVE QUAL (NEGATIVE); UDS - COCAINE NEGATIVE QUAL (NEGATIVE); UDS - OPIATE NEGATIVE QUAL (NEGATIVE); UDS - PCP NEGATIVE QUAL (NEGATIVE); UDS - THC NEGATIVE QUAL (NEGATIVE)
[2018-05-02 05:23] LABS: APPEARANCE CLEAR (CLEAR); BILIRUBIN NEGATIVE (NEGATIVE); COLOR YELLOW (YELLOW); GLUCOSE NEGATIVE (NEGATIVE); KETONE SMALL mg/dL (NEGATIVE); NITRITE NEGATIVE (NEGATIVE); PROTEIN 1+ mg/dL (NEGATIVE)
[2018-05-02 05:24] LABS: BACTERIA FEW /hpf (NONE SEEN); EPITHELIAL CELLS 0-5 /hpf (0-5); MUCUS <1+ /lpf (NONE SEEN); RED CELLS - URINE 0-5 /hpf (0-5); WHITE CELLS - URINE 0-5 /hpf (0-5)
[2018-05-02 05:38] VITALS: BP 141/79
== END 2018-05-02 05:38 | disposition home or self-care (01) ==
LOC: D.ER 04:17
PROVIDERS: Emergency Medicine
DX: F20.9 Schizophrenia, unspecified (principal); F15.10 Other stimulant abuse, uncomplicated; R44.1 Visual hallucinations; F17.200 Nicotine dependence, unspecified, uncomplicated

== ENCOUNTER 2018-10-03 12:06 | Day surgery (SDC) | payer MEDICARE ==
[~2018-10-03] VITALS: Ht 193 cm; Wt 106.8 kg
[2018-10-03 12:28] LABS: HEMATOCRIT 46.4 % (42.0-54.0); HEMOGLOBIN 16.3 g/dL (13.5-17.5); MCH 34.6 pg (26.0-34.0); MCHC 35.1 g/dL (31.0-37.0); MCV 98.5 fL (80.0-100.0); MEAN PLATELET VOLUME 11.9 fL (7.4-10.4); RBC 4.71 10x6/uL (4.20-6.10); RDW 14.6 % (11.5-14.5); WBC 7.5 10x3/uL (4.8-10.8)
[2018-10-03 12:36] LABS: PLATELET COUNT 64 10x3/uL (130-400)
[2018-10-03 12:54] LABS: ALBUMIN 3.4 g/dL (3.4-5.0); ALKALINE PHOSPHATASE 156 U/L (46-116); ALT (SGPT) 61 U/L (10-68); BILIRUBIN - TOTAL 0.66 mg/dL (0.2-1.3); CALC OSMOLALITY 278 mosm/kg (275-300); CALCIUM 8.4 mg/dL (8.5-10.1); CARBON DIOXIDE 24.2 mmol/L (21.0-32.0); CHLORIDE - SERUM 103 mmol/L (98-107); CREATININE - SERUM 0.8 mg/dL (0.6-1.3); GLUCOSE 120 mg/dL (74-106); POTASSIUM - SERUM 3.9 mmol/L (3.5-5.1); PROTEIN - SERUM 6.7 g/dL (6.4-8.2); SODIUM 139 mmol/L (136-145); UREA NITROGEN 12 mg/dL (7-18); eGFR NON AFRICAN AMERICAN > 90 mL/min (90-120)
[2018-10-03 12:58] LABS: PLATELET ESTIMATE DECREASED
[2018-10-03] MEDS ORDERED: LEVEMIR FL100 UNIT/1 SC (13:21)
[2018-10-03] MEDS ORDERED: GLIPIZIDE10 MG PO (13:22)
[2018-10-03 13:25] VITALS: Ht 193 cm; Wt 106.8 kg
[2018-10-03 13:56] VITALS: BP 122/78
--- NOTE | 2018-10-05 08:56 | OP ---
PATIENT NAME: KATELYN FORMAN MEDICAL RECORD: [id number] :63 LOCATION:D.OPS ADMISSION DATE: SURGEON: KHRIS HICKS MD DATE OF OPERATION: 10/03/2018 PREOPERATIVE DIAGNOSES: History of multiple colon polyps. Thrombocytopenia. POSTOPERATIVE DIAGNOSES: History of multiple colon polyps with 2 new polyps identified, also inadequate prep. Thrombocytopenia. PROCEDURES: 1. Total colonoscopy to cecum. 2. Hot biopsy forceps polypectomies times 2. SURGEON: Khris Hicks MD ADMISSIONS DIRECTOR: None. BLOOD LOSS: Minimal. ANESTHESIA: IV sedation. ENDOSCOPIC COURSE: The patient was conveyed to endoscopy suite electively on 10/03/2018. IV sedation was induced by the anesthesia staff. The patient was placed in the Salgado position. A digital rectal examination was performed. It revealed prostate that was symmetric and without nodules. A colonoscope was inserted through the anus. It was easily advanced to the cecum. The prep was inadequate. I slowly withdrew the endoscope. I irrigated and aspirated extensively. Two polyps were identified. These were removed utilizing the hot biopsy forceps polypectomy technique. There was oozing from both of the polyps and this was controlled with the argon plasma ice grinder. The proximal most polyp was a 2.3 cm polyp on a fold. The distal most polyp was a somewhat pedunculated polyp, that was a 1.5 cm polyp. A retroflexed view was obtained in the rectum. I then unretroflexed the scope and removed it under direct vision. I will see the patient in my office in 2-3 weeks. I will plan for his next colonoscopy to take place in 1 year. He likely will need a 2-day prep. TRANSINT:[id number] Voice Confirmation ID: [id number] DOCUMENT ID: [id number] KHRIS HICKS MD at 0856 CC: FEROZ MCDOWELL MD and SAMMY ANDERSON [id number] DICTATION DATE: 10/03/181731 PURCHASING INTERNSHIP: 10/03/187 [facility] 10/03/[address] [address]
== END 2018-10-03 17:25 | disposition home or self-care (01) ==
LOC: D.OPS 12:06
PROVIDERS: Anesthesiology; ATTEND Surgery
DX: D12.4 Benign neoplasm of descending colon (principal); D12.5 Benign neoplasm of sigmoid colon; D69.6 Thrombocytopenia, unspecified; Z86.010 Personal history of colon polyps; Z01.812 Encounter for preprocedural laboratory examination

== ENCOUNTER 2019-02-01 20:15 | Emergency (ER) | payer MEDICARE ==
[~2019-02-01] VITALS: Ht 193 cm; Wt 97.7 kg
[~2019-02-01 20:15] MED LIST changes: +GLIPIZIDE10 MG PO; +LEVEMIR FL100 UNIT/1 SC
[2019-02-01 20:24] VITALS: BP 116/71; Ht 193 cm; Wt 97.7 kg
[2019-02-02] MEDS ORDERED: HYDROCODON-ACE1 EA10 PO (12:43)
== END 2019-02-02 01:08 | disposition left against medical advice (07) ==
LOC: D.ER 20:15
DX: S32.009A Unspecified fracture of unspecified lumbar vertebra, initial encounter for closed fracture (principal); V47.5XXA Car driver injured in collision with fixed or stationary object in traffic accident, initial encounter; E11.9 Type 2 diabetes mellitus without complications; I10 Essential (primary) hypertension; F20.9 Schizophrenia, unspecified

== ENCOUNTER 2019-02-02 11:45 | Emergency (ER) | payer MEDICARE ==
[~2019-02-02] VITALS: Ht 193 cm; Wt 98.2 kg
[2019-02-02 11:55] VITALS: Ht 193 cm; Wt 98.2 kg
[2019-02-02] MEDS ORDERED: HYDROCODON-ACE1 EA10 PO (12:43)
[2019-02-02 12:50] VITALS: BP 123/76
== END 2019-02-02 12:51 | disposition home or self-care (01) ==
LOC: D.ER 11:45
DX: S32.019A Unspecified fracture of first lumbar vertebra, initial encounter for closed fracture (principal); V49.9XXA Car occupant (driver) (passenger) injured in unspecified traffic accident, initial encounter; E11.9 Type 2 diabetes mellitus without complications; I10 Essential (primary) hypertension

== ENCOUNTER 2019-02-06 05:43 | Inpatient (IN) | payer MEDICARE ==
[~2019-02-06] VITALS: Ht 193 cm; Wt 92.7 kg
[~2019-02-06 05:43] MED LIST changes: +HYDROCODON-ACE1 EA10 PO
--- NOTE | 2019-02-06 06:08 | NUR ---
PT STILL UNRESPONSIVE. 16 FR. OLIVA INSERTED PER STERILE TECHNIQUE. CLEAR YELLOW URINE OBTAINED. PT BECAME ALERT UPON INSERTION. DR IQBAL TO BEDSIDE. URINE TO LAB.
[2019-02-06 06:31] LABS: BASOPHILS 0.1 % (0-2); EOSINOPHILS 0.3 % (0-7); HEMATOCRIT 45.6 % (42.0-54.0); HEMOGLOBIN 16.2 g/dL (13.5-17.5); IMMATURE GRANULOCYTES 0.2 % (0-5); LYMPHOCYTES 10.4 % (15-50); MCH 33.6 pg (26.0-34.0); MCHC 35.5 g/dL (31.0-37.0); MCV 94.6 fL (80.0-100.0); MEAN PLATELET VOLUME 11.4 fL (7.4-10.4); MONOCYTES 6.4 % (2-11); NEUTROPHILS 82.6 % (40-80); RBC 4.82 10x6/uL (4.20-6.10); RDW 13.9 % (11.5-14.5); WBC 9.8 10x3/uL (4.8-10.8)
[2019-02-06 06:41] LABS: PLATELET COUNT 93 10x3/uL (130-400)
[2019-02-06 06:42] LABS: APTT 29.5 SECONDS (22.8-39.4); INR 1.13 (0.85-1.17); PROTIME 13.9 SECONDS (11.6-15.0)
[2019-02-06 06:47] LABS: UDS - AMPHET POSITIVE QUAL (NEGATIVE); UDS - BARB NEGATIVE QUAL (NEGATIVE); UDS - BENZO POSITIVE QUAL (NEGATIVE); UDS - COCAINE NEGATIVE QUAL (NEGATIVE); UDS - OPIATE NEGATIVE QUAL (NEGATIVE); UDS - PCP NEGATIVE QUAL (NEGATIVE); UDS - THC NEGATIVE QUAL (NEGATIVE)
[2019-02-06 06:50] LABS: SALICYLATES 4.2 mg/dL (2.8-20.0)
[2019-02-06 06:53] LABS: LITHIUM 0.11 mmol/L (0.60-1.20)
[2019-02-06 06:57] LABS: ALBUMIN 3.6 g/dL (3.4-5.0); ALKALINE PHOSPHATASE 154 U/L (46-116); ALT (SGPT) 49 U/L (10-68); BILIRUBIN - TOTAL 1.03 mg/dL (0.2-1.3); CALC OSMOLALITY 293 mosm/kg (275-300); CALCIUM 8.9 mg/dL (8.5-10.1); CARBON DIOXIDE 25.4 mmol/L (21.0-32.0); CHLORIDE - SERUM 105 mmol/L (98-107); CREATININE - SERUM 0.9 mg/dL (0.6-1.3); GLUCOSE 218 mg/dL (74-106); PROTEIN - SERUM 7.4 g/dL (6.4-8.2); SODIUM 142 mmol/L (136-145); UREA NITROGEN 25 mg/dL (7-18); eGFR NON AFRICAN AMERICAN > 90 mL/min (90-120)
[2019-02-06 07:02] LABS: APPEARANCE CLEAR (CLEAR); BACTERIA FEW /hpf (NONE SEEN); BILIRUBIN NEGATIVE (NEGATIVE); COLOR YELLOW (YELLOW); EPITHELIAL CELLS OCC /hpf (0-5); GLUCOSE 500 mg/dL (NEGATIVE); KETONE MODERATE mg/dL (NEGATIVE); NITRITE NEGATIVE (NEGATIVE); PROTEIN 1+ mg/dL (NEGATIVE); RED CELLS - URINE 0-5 /hpf (0-5); SPECIFIC GRAVITY 1.015 (1.005-1.020)
[2019-02-06 07:03] LABS: AMORPHOUS SEDIMENT <1+ /lpf (NONE SEEN)
--- NOTE | 2019-02-06 07:06 | NUR ---
BEDSIDE REPORT GIVEN TO ELIUD RN VIA SBAR FORMAT. GCS INCREASED TO 13
[2019-02-06 07:08] LABS: CKMB 9.3 U/L (0.0-3.6); MAGNESIUM - SERUM 2.1 mg/dL (1.8-2.4); TROPONIN-I < 0.017 ng/mL (0.000-0.060)
[2019-02-06 07:13] LABS: CREATINE KINASE 1297 UL (21-232)
--- NOTE | 2019-02-06 07:59 | NUR ---
PT IS VERY CONFUSED AND IS UNABLE TO ANSWER MY QUESTIONS TO THE ASSESSMENT. PT DOES NOT UNDERSTAND WHAT I AM ASKING. 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 PT BEING ADMITTED TO [facility] AT THIS TIME.
--- NOTE | 2019-02-06 08:14 | NUR ---
CALLED REPORT TO ALBER RODRIGUEZ IN ICU FOR ROOM 2306.
[2019-02-06 09:43] VITALS: BP 125/92; Ht 193 cm; Wt 92.7 kg
--- NOTE | 2019-02-06 09:53 | NUR ---
DR GUTIERRES AT BEDSIDE GIVEN UPDATE NEW ORDERS RECIEVED.
--- NOTE | 2019-02-06 10:15 | NUR ---
DR DEWEY OFFICE CALLED IN [facility] TO CONSULT
--- NOTE | 2019-02-06 10:22 | NUR ---
DAUGHTER MICHELLE CALLED GIVEN CHARLYE. STATED WOULD BE HERE FOR THE 12-2 VISIT
[2019-02-06 11:00] VITALS: BP 146/85
--- NOTE | 2019-02-06 11:00 | NUR ---
REASSESSMENT COMPLETE PER FLOW SHEET. VSS. NO NEW CHANGES WILL CONTINUE TO MONITOR
--- NOTE | 2019-02-06 11:45 | NUR ---
ASSISTED WITH LUNCH ATE 100% DENIES NEEDS
--- NOTE | 2019-02-06 12:30 | NUR ---
BROTHER JEFFREY AT BEDSIDE GIVEN UPDATE.
--- NOTE | 2019-02-06 12:33 | NUR ---
DR BHATT AT BEDSIDE. GIVEN UPDATE. ORDER TO Gilmar HARDY AT THIS TIME. WILL ADM.
--- NOTE | 2019-02-06 13:15 | NUR ---
PT FAMILY AT BEDSIDE LEE ANN CASE MANAGEMENT SPOKE WITH FAMILY AT GREAT LENGTH.
--- NOTE | 2019-02-06 14:27 | NUR ---
PT SLEEPING COMFORTABLY VSS NO NEW CHANGES WILL CONTINUE TO MONITOR
--- NOTE | 2019-02-06 15:00 | NUR ---
REASSESSMENT COMPLETE PER FLOW SHEET. VSS .NO NEW CHANGES WILL CONTINUE TO MONITOR
--- NOTE | 2019-02-06 15:32 | MORECARE ---
CASE MANAGEMENT DISCHARGE SUMMARY PATIENT: KATELYN FORMAN UNIT: [id number] ADM DATE: 02/06/19 AGE: 53 : 63 SEX: M ROOM/BED: D.2306 AUTHOR: SIMBA QUIÑONES PHYSICIAN: REFERRING PHYSICIAN: JO GUTIERRES MD DATE OF SERVICE: 02/06/19 Discharge Plan Patient Name: KATELYN FORMAN [facility] [facility] 1965 Planned Disposition: Psych facility Anticipated Discharge Date: Discharge Date: Expected LOS: Initial Reviewer: [email or web address] Initial Review Date: 02/06/2019 Generated: 02/06/19 4:32 pm DCPIA - Discharge Planning Initial Assessment Updated by [id number]: Sobia Rao on 02/06/19 3:27 pm * Is the patient Alert and Oriented? No * PCP [facility] * Pharmacy [facility] * Preadmission Environment Home with Family * ADLs Independent * Equipment None * List name and contact numbers for known caregivers / representatives who currently or will assist patient after discharge: Lesley Russell - [facility] - [phone] * Verbal permission to speak to the caregivers and representatives has been obtained from the patient. N/A * Community resources currently utilized None * Additional services required to return to the preadmission environment? No * Can the patient safely return to the preadmission environment? Yes * Has this patient been hospitalized within the prior 30 days at any hospital? No Patient Name: KATELYN FORMAN Page [id number] at 1532 All edits/amendments must be made on the electronic document DICTATION DATE: 02/06/19 1532 PLASTER LATHER: JEFF 02/06/19 1532 RPT#: [id number] DC DATE: STATUS: ADM IN [facility] [address] [place] [address] END OF REPORT
--- NOTE | 2019-02-06 16:01 | MORECARE ---
CASE MANAGEMENT DISCHARGE SUMMARY PATIENT: KATELYN FORMAN UNIT: [id number] ADM DATE: 02/06/19 AGE: 53 : 63 SEX: M ROOM/BED: D.2306 AUTHOR: ISHMAEL,DOC PHYSICIAN: REFERRING PHYSICIAN: JO GUTIERRES MD DATE OF SERVICE: 02/06/19 Discharge Plan Patient Name: KATELYN FORMAN Facility: [facility]:[place] : 1965 Planned Disposition: Psych facility Anticipated Discharge Date: Discharge Date: Expected LOS: Initial Reviewer: [email or web address] Initial Review Date: 02/06/2019 Generated: 02/06/19 5:00 pm DCP- Discharge Planning Updated by [email or web address]: Sobia Rao on 02/06/19 2:[address] Patient Name: KATELYN FORMAN Admission Status: ER Accout number: [id number] Admission Date: 02-06-2019 : 1965 Admission Diagnosis: Attending: KRISTINE GUTIERRES Current LOS: 1 Anticipated DC Date: Planned Disposition: Psych facility Primary Insurance: MEDICARE A & B Discharge Planning Comments: CM met with daughter Lesley after explaining CM role. Patient is currently confused and slightly combative. Lesley states that patient was living with his sister Hanna but she can't take care of him any longer. Lesley stated that basically he is homeless. He has stayed with different family members off and on. Lesley states that he goes through cycles and they continue to get worse each time. Family states that he has been in [place] recently for suicidal attempts. Daughter states that she thinks he needs fci placement because the family can't take care of him and he can't take care of himself. Patient will stop taking his medication and start taking street drugs and process starts over. CM explained that most likely will be discharged from here to psych facility and they will need to help with placement once discharged from there. CM will continue to follow and assist as needed with discharge planning / needs. Customer Operations Intern: Sobia Rao DCPIA - Discharge Planning Initial Assessment Updated by [email or web address]: Sobia Rao on 02/06/19 3:27 pm * Is the patient Alert and Oriented? No * PCP [facility] * Pharmacy [facility] [place] * Preadmission Environment Home with Family * ADLs Independent * Equipment None * List name and contact numbers for known caregivers / representatives who currently or will assist patient after discharge: Lesley Russell - daughter - [phone] * Verbal permission to speak to the caregivers and representatives has been obtained from the patient. N/A * Community resources currently utilized None * Additional services required to return to the preadmission environment? No * Can the patient safely return to the preadmission environment? Yes * Has this patient been hospitalized within the prior 30 days at any hospital? No Last DP export: 02/06/19 2:32 p Patient Name: KATELYN FORMAN Page [phone] at 1601 All edits/amendments must be made on the electronic document DICTATION DATE: 02/06/191599 YOUTH SERVICES LIBRARIAN: JEFF 02/06/191599 RPT#: [id number] DC DATE: STATUS: ADM IN [facility] [address] [place] [address] END OF REPORT
--- NOTE | 2019-02-06 16:19 | MORECARE ---
CASE MANAGEMENT DISCHARGE SUMMARY PATIENT: KATELYN FORMAN UNIT: [id number] ADM DATE: 02/06/19 AGE: 53 : 63 SEX: M ROOM/BED: D.2306 AUTHOR: ISHMAEL,DOC PHYSICIAN: REFERRING PHYSICIAN: JO GUTIERRES MD DATE OF SERVICE: 02/06/19 Discharge Plan Patient Name: KATELYN FORMAN Facility: [facility]:[place] : 1965 Planned Disposition: Psych facility Anticipated Discharge Date: Discharge Date: Expected LOS: Initial Reviewer: [id number] Initial Review Date: 02/06/2019 Generated: 02/06/19 5:18 pm DCP- Discharge Planning Updated by [email or web address]: Sobia Rao on 02/06/19 2:[address] Patient Name: KATELYN FORMAN Admission Status: ER Accout number: [id number] Admission Date: 02-06-2019 : 1965 Admission Diagnosis: Attending: KRISTINE GUTIERRES Current LOS: 1 Anticipated DC Date: Planned Disposition: Psych facility Primary Insurance: MEDICARE A & B Discharge Planning Comments: CM met with daughter Lseley after explaining CM role. Patient is currently confused and slightly combative. Lesley states that patient was living with his sister Hanna but she can't take care of him any longer. Lesley stated that basically he is homeless. He has stayed with different family members off and on. Lesley states that he goes through cycles and they continue to get worse each time. Family states that he has been in [place] recently for suicidal attempts. Daughter states that she thinks he needs retirement placement because the family can't take care of him and he can't take care of himself. Patient will stop taking his medication and start taking street drugs and process starts over. CM explained that most likely will be discharged from here to psych facility and they will need to help with placement once discharged from there. CM will continue to follow and assist as needed with discharge planning / needs. Superior Court Clerk: Sobia Rao DCPIA - Discharge Planning Initial Assessment Updated by [id number]: Sobia Rao on 02/06/19 3:27 pm * Is the patient Alert and Oriented? No * [facility]CP [facility] * [facility]acy [facility] [place] * Preadmission Environment Home with Family * ADLs Independent * Equipment None * List name and contact numbers for known caregivers / representatives who currently or will assist patient after discharge: Lesley Russell - daughter - [phone] * Verbal permission to speak to the caregivers and representatives has been obtained from the patient. N/A * Community resources currently utilized None * Additional services required to return to the preadmission environment? No * Can the patient safely return to the preadmission environment? Yes * Has this patient been hospitalized within the prior 30 days at any hospital? No External Providers External Provider: [facility] Next Contact Date: Service Request Date: Service Type: Resolution: Reviewer: Comments: Last DP export: 02/06/19 3:01 p Patient Name: KATELYN FORMAN Page [phone] at 1619 All edits/amendments must be made on the electronic document DICTATION DATE: 02/06/191617 QUARRY SUPERVISOR: JEFF 02/06/191617 RPT#: [id number] DC DATE: STATUS: ADM IN [facility] [address] [place] [address] END OF REPORT
--- NOTE | 2019-02-06 16:20 | NUR ---
COMPLETE BB LINEN CHANGE ADM. LARGE BM NOTED. WILL CONTINUE TO MONITOR
--- NOTE | 2019-02-06 17:20 | NUR ---
DR GONZALEZ AT BEDSIDE UPDATE GIVEN NEW ORDERS RECEIVED
--- NOTE | 2019-02-06 17:49 | MORECARE ---
CASE MANAGEMENT DISCHARGE SUMMARY PATIENT: KATELYN FORMAN UNIT: [id number] ADM DATE: 02/06/19 AGE: 53 : 63 SEX: M ROOM/BED: D.2306 AUTHOR: ISHMAEL,DOC PHYSICIAN: REFERRING PHYSICIAN: JO GUTIERRES MD DATE OF SERVICE: 02/06/19 Discharge Plan Patient Name: KATELYN FORMAN Facility: [facility]:[place] : 1965 Planned Disposition: Psych facility Anticipated Discharge Date: Discharge Date: Expected LOS: Initial Reviewer: [email or web address] Initial Review Date: 02/06/2019 Generated: 02/06/19 6:49 pm Comments DCP- Discharge Planning Updated by [email or web address]: Sobia Rao on 02/06/19 4:[address] CM contacted and faxed records to transfer center for inpatient psych placement. CM will continue to follow and assist as needed with discharge planning / needs. DCP- Discharge Planning Updated by [id number]: Sobia Rao on 02/06/19 2:[address] Patient Name: KATELYN FORMAN Admission Status: ER Accout number: [id number] Admission Date: 02-06-2019 : 1965 Admission Diagnosis: Attending: KRISTINE GUTIERRES Current LOS: 1 Anticipated DC Date: Planned Disposition: Psych facility Primary Insurance: MEDICARE A & B Discharge Planning Comments: CM met with daughter Lesley after explaining CM role. Patient is currently confused and slightly combative. Lesley states that patient was living with his sister Hanna but she can't take care of him any longer. Lesley stated that basically he is homeless. He has stayed with different family members off and on. Lesley states that he goes through cycles and they continue to get worse each time. Family states that he has been in [place] recently for suicidal attempts. Daughter states that she thinks he needs fci placement because the family can't take care of him and he can't take care of himself. Patient will stop taking his medication and start taking street drugs and process starts over. CM explained that most likely will be discharged from here to psych facility and they will need to help with placement once discharged from there. CM will continue to follow and assist as needed with discharge planning / needs. Senior Occupational Therapist: Sobia Rao DCPIA - Discharge Planning Initial Assessment Updated by [id number]: Sobia Rao on 02/06/19 3:27 pm * Is the patient Alert and Oriented? No * PCP [facility] * Pharmacy [facility] * Preadmission Environment Home with Family * ADLs Independent * Equipment None * List name and contact numbers for known caregivers / representatives who currently or will assist patient after discharge: Lesley Russell - daughter - [phone] * Verbal permission to speak to the caregivers and representatives has been obtained from the patient. N/A * Community resources currently utilized None * Additional services required to return to the preadmission environment? No * Can the patient safely return to the preadmission environment? Yes * Has this patient been hospitalized within the prior 30 days at any hospital? No Last DP export: 02/06/19 3:19 p Patient Name: KATELYN FORMAN Page [phone] at 1749 All edits/amendments must be made on the electronic document DICTATION DATE: 02/06/191748 SENIOR TALENT MANAGEMENT CONSULTANT: JEFF 02/06/191748 RPT#: [id number] [place] DATE: STATUS: ADM IN [facility] [address] [place] [address] END OF REPORT
--- NOTE | 2019-02-06 18:10 | NUR ---
FAMILY CALLED GIVEN UPDATE REGAURDING TRANSFER
--- NOTE | 2019-02-06 18:30 | NUR ---
PT PULLED OUT OLIVA. REPLACED WITHOUT DIFFICULTY. BLOODY URINE NOTED
[2019-02-06 19:00] VITALS: BP 130/80
--- NOTE | 2019-02-06 19:30 | NUR ---
PT INCOHERENT YELLING, ATTEMPTING TO PULL OUT OLIVA CATH, HALDOL GIVEN PER MAR/ORDERS, VSS, PSYCHIATRIC SITTER LLUVIA AT BEDSIDE, WILL CONTINUE TO MONITOR
--- NOTE | 2019-02-06 19:44 | NUR ---
Patient is in restraints, trying to pull guan cath. out, has thrown feces on the wall and at nurses, screaming and yelling word salad, patient is unable to be assessed for suicidal intentions due to psychotic behavior.will assess patient when he is able to respond to questions.
--- NOTE | 2019-02-06 19:58 | NUR ---
PT ATTEMPTING TO GET OOB, PT STATED "I NEED TO GET OUT OF HERE SO YALL DONT SEE THIS SHIT" WHEN ASKED WHAT HE WAS REFERING TO, PT STATED" IM GONNA BLOW THIS MOTHER FUCKING MOTORCYCLE UP"
[2019-02-06 20:00] VITALS: BP 147/96
--- NOTE | 2019-02-06 20:00 | NUR ---
DAUGHTER AT BEDSIDE, UPDATE GIVEN, NO FURTHER NEEDS AT THIS TIME
--- NOTE | 2019-02-07 02:08 | NUR ---
OLIVA CATH AND PIV IN LEFT SHOULDER REMOVED FOR TRANSPORT TO [facility] PER CHARGE NURSE AT [facility] IN [place],
--- NOTE | 2019-02-07 02:44 | NUR ---
[facility] AT BEDSIDE, REPORT GIVEN, PT TRANSFERED TO EMS STRETCHER WITHOUT ASSIST, VSS, PT AWAKE AND ALERT, PT AND EMS DENIE FURTHER NEEDS
--- NOTE | 2019-02-07 16:41 | CN ---
PATIENT NAME:KATELYN FORMAN MEDICAL RECORD: [id number] : 63 LOCATION:YI.2306 ADMIT DATE: 02/06/19 ACCOUNT: [id number] CONSULTING PHYSICIAN: JED GONZALEZ MD REFERRING PHYSICIAN: JO GUTIERRES MD DATE OF CONSULTATION: 02/06/2019 IDENTIFYING DATA: The patient is 53 years old and admitted to the hospital secondary to an overdose. CHIEF COMPLAINT: Psychotic agitated behavior. HISTORY OF PRESENT ILLNESS: The patient is a known chronically mentally ill person, who has not been taking his medicines for the past week and has been using methamphetamine. Apparently, he decided to jump into his daughter's swimming pool to kill himself. He was screaming irrationally and she called the administrator health care facility. He was delusional, agitated, disruptive, but was eventually brought to the hospital and given Haldol and Versed to calm him. The patient unfortunately was also in atrial fibrillation with a rapid ventricular response, but was converted with Cardizem. The patient is very delusional. He says he is Hitler. He is threatening to kill people. He says he is going to cut the heads off of people. He is throwing his excrement at the wall. ASSESSMENT: 1. Schizophrenia. 2. Methamphetamine abuse. PLAN: The patient is acutely and directly dangerous. He needs to be transferred to acute inpatient psychiatric care as soon as it is reasonably possible to do so. In the interim, I am going to prescribe both p.r.n. and scheduled medicines for him and I am asking that they be used liberally to keep him calm and not have him represent a danger to the other patients or staff in the intensive care unit. TRANSINT:[id number] Voice Confirmation ID: [id number] DOCUMENT ID: [id number] JED GONZALEZ MD at 1641 CC: [id number] DICTATION DATE: 02/06/19 1521 SPECIAL AGENT SECRET SERVICE: 02/06/19 1839 DIS IN 02/07/19 [facility] [address] [place] [id number]
--- NOTE | 2019-02-07 18:33 | MORECARE ---
CASE MANAGEMENT DISCHARGE SUMMARY PATIENT: KATELYN FORMAN UNIT: [id number] ADM DATE: 02/06/19 AGE: 53 : 63 SEX: M ROOM/BED: D.2306 AUTHOR: ISHMAEL,DOC PHYSICIAN: REFERRING PHYSICIAN: JO GUTIERRES MD DATE OF SERVICE: 02/07/19 Discharge Plan Patient Name: KATELYN FORMAN Facility: [facility]:[place] : 1965 Planned Disposition: Psych facility Anticipated Discharge Date: Discharge Date: 02/07/2019 Expected LOS: Initial Reviewer: [email or web address] Initial Review Date: 02/06/2019 Generated: 02/07/19 7:33 pm Comments DCP- Discharge Planning Updated by [email or web address]: Sobia Rao on 02/06/19 4:[address] CM contacted and faxed records to transfer center for inpatient psych placement. CM will continue to follow and assist as needed with discharge planning / needs. DCP- Discharge Planning Updated by [email or web address]: Sobia Rao on 02/06/19 2:[address] Patient Name: KATELYN FORMAN Admission Status: ER Accout number: [id number] Admission Date: 02-06-2019 : 1965 Admission Diagnosis: Attending: KRISTINE GUTIERRES Current LOS: 1 Anticipated DC Date: Planned Disposition: Psych facility Primary Insurance: MEDICARE A & B Discharge Planning Comments: CM met with daughter Lesley after explaining CM role. Patient is currently confused and slightly combative. Lesley states that patient was living with his sister Hanna but she can't take care of him any longer. Lesley stated that basically he is homeless. He has stayed with different family members off and on. Lesley states that he goes through cycles and they continue to get worse each time. Family states that he has been in [place] recently for suicidal attempts. Daughter states that she thinks he needs custodial placement because the family can't take care of him and he can't take care of himself. Patient will stop taking his medication and start taking street drugs and process starts over. CM explained that most likely will be discharged from here to psych facility and they will need to help with placement once discharged from there. CM will continue to follow and assist as needed with discharge planning / needs. Paint Roller Covermaker: Sobia Rao DCPIA - Discharge Planning Initial Assessment Updated by [email or web address]: Sobia Rao on 02/06/19 3:27 pm * Is the patient Alert and Oriented? No * [facility]CP [facility] * Pharmacy [facility] * Preadmission Environment Home with Family * ADLs Independent * Equipment None * List name and contact numbers for known caregivers / representatives who currently or will assist patient after discharge: Lesley Russell - daughter - [phone] * Verbal permission to speak to the caregivers and representatives has been obtained from the patient. N/A * Community resources currently utilized None * Additional services required to return to the preadmission environment? No * Can the patient safely return to the preadmission environment? Yes * Has this patient been hospitalized within the prior 30 days at any hospital? No Last DP export: 02/06/19 4:50 p Patient Name: KATELYN FORMAN Page 13389 at 1833 All edits/amendments must be made on the electronic document DICTATION DATE: 02/07/191831 LICENSING REGISTRATION EXAMINER: JEFF 02/07/191831 RPT#: [id number] [place] DATE:02/07/19 STATUS: DIS IN [facility] [address] [place] [address] END OF REPORT
--- NOTE | 2019-02-09 11:14 | CN ---
PATIENT NAME:KATELYN YOUSSEF MEDICAL RECORD: [id number] : 63 LOCATION:[id number].2306 ADMIT DATE: 02/06/19 ACCOUNT: [id number] CONSULTING PHYSICIAN: MAI BHATT MD REFERRING PHYSICIAN: JO GUTIERRES MD DATE OF CONSULTATION: 02/06/2019 DIAGNOSES: 1. Atrial fibrillation. 2. Methamphetamine use. 3. Attempted suicide. HISTORY OF PRESENT ILLNESS: Mr. Youssef is admitted after jumping into a pool trying to kill himself. He has done methamphetamines. He was initially in atrial fibrillation with rapid ventricular response. He was given IV Cardizem. He has converted to sinus rhythm. He has no previous cardiac history. No history of palpitations. PHYSICAL EXAMINATION: GENERAL APPEARANCE: Well-nourished, well-developed, appears stated age. Level of distress, comfortable. PSYCHIATRIC: Mental status, alert, normal affect. Orientation, oriented to time, place and person. EYES: Lids and conjunctiva, noninjected. No discharge, no pallor. ENT: Lips, teeth, gums, normal dentition. Oropharynx, no cyanosis, no pallor. NECK: Carotid arteries, bilateral normal upstroke, no bruits, no thrills. JUGULAR VEINS: No jugular venous pressure or distention. CERVICAL LYMPH NODES: Nontender, nonenlarged. THYROID: Not enlarged. Nontender. No nodules. LUNGS: Respiratory effort, unlabored. CHEST: Normal curvature. No thoracic deformity. No chest wall tenderness. Percussion, resonant. Auscultation, clear. No wheezes, no rales, no rhonchi. CARDIOVASCULAR: Precordial exam, nondisplaced. No heaves or pericardial thrills. Rate and rhythm, regular. Heart sounds, normal S1, normal S2. No S3, no gallop, no rub. Systolic murmur, not heard. Diastolic murmur, not heard. EXTREMITIES: No cyanosis, no edema. Peripheral pulses, full and equal in all extremities, except as noted. No bruits appreciated. ABDOMEN: Soft, nondistended. Normal aorta. No bruit. Nontender. No masses. Liver, nontender, no hepatomegaly. Spleen, nontender, no splenomegaly. MUSCULOSKELETAL: No joint tenderness. No joint swelling. No erythema. NEUROLOGICAL: Normal gait, normal strength, normal tone. SKIN: Warm and dry. OVERALL IMPRESSION: Atrial fibrillation in relation to methamphetamine use. At this time, we will get an echocardiogram. No other cardiac workup or treatment is necessary. We can discontinue the Cardizem drip, should not need any pharmacologic therapy for the atrial fibrillation as long as he stays away from methamphetamines. TRANSINT:[id number] Voice Confirmation ID: [id number] DOCUMENT ID: [id number] CONSULT REPORT [id number] KATELYN YOUSSEF, MAI MARTI at 1114 CC: [id number] DICTATION DATE: 02/06/19 1228 BENCH HAND: 02/06/19 1301 DIS IN 02/07/19 [id number] [place] [address]
--- NOTE | 2019-02-09 11:14 | EC ---
PATIENT:KATELYN FORMAN DATE OF SERVICE: 02/06/19 SEX: M MEDICAL RECORD: [id number] DATE OF : 63 LOCATION:[facility] D230 AGE OF PATIENT: 53 ADMISSION DATE: 02/06/19 REFERRING PHYSICIAN: INTERPRETING PHYSICIAN: MAI REESE MD ECHOCARDIOGRAM REPORT ECHO CHARGES 4 ECHO COMPLETE Date: 02/06/19 CLINICAL DIAGNOSIS: ATRIAL FIB ECHOCARDIOGRAPHIC MEASUREMENTS (adult normal given) AC root (d.<3.7cm) 3.8 cm LV Septum d (<1.2 cm> 1.3 cm Valve Excursion 2.0 cm LV Septum (systole) 1.5 cm Left Atria (s.<4.0cm> 3.8 cm LVPW d(<1.2cm) 1.5 cm RV (d.<2.3cm) 3.7 cm LVPW (sytole) 1.7 cm LV diastole(<5.6CM) 5.2 cm MV E-F(>70mm/sec) cm LV systole 4.0 cm LVOT Diameter 2.2 cm MV exc.(>10mm) 1.1 cm Est.ejection fraction (50-75%) % DOPPLER: LVIT cm/sec A 93.0 cm/sec E 49.0 cm/sec LA cm/sec RVSP 18 mmHg LVOT 87 cm/sec AOP1/2T m/s Asc. Ao 140 cm/sec RVOT 93 cm/sec RA cm/sec PA 1189 cm/sec AV Gradient Peak 7.80 mmHg AV Mean 4.22 mmHg AV Area 2.3 cm MV Gradient Peak 4.89 mmHg MV Mean 2.30 mmHg MV Area cm COMMENTS: Residential Building Inspector: Cynthia CASIANO Director Systems: 1 Dr. Reese TAPE# PACS Pericardial Effusion N DATE OF SERVICE: 02/06/2019 ECHOCARDIOGRAM DATE OF SERVICE: 02/06/2019 FINDINGS: 1. Left ventricular chamber size is within normal limits. Left ventricular systolic function is normal. Overall ejection fraction estimated at 65%. 2. Left atrium, right atrium, and right ventricular chamber sizes are within ECHOCARDIOGRAM REPORT [id number] KATELYN FORMAN normal limits. 3. Valvular structures have normal structure and motion. 4. Doppler interrogation reveals no significant valvular insufficiency or stenosis. 5. No evidence of pericardial effusion or left ventricular thrombus. TRANSINT:[id number] Voice Confirmation ID: [id number] DOCUMENT ID: [id number] MAI REESE MD at 1114 CC: [id number] DICTATION DATE: 02/07/19 1006 REGISTRATION SCHEDULING SPECIALIST: 02/07/19 1010 DIS IN 02/07/19 [facility] [address] [id number]
== END 2019-02-07 02:44 | DRG 310 ==
LOC: D.ER 05:43 → D.ICU 08:05
PROVIDERS: Emergency Medicine; ADMIT Emergency Medicine; ATTEND Emergency Medicine
DX: I48.91 Unspecified atrial fibrillation (principal); T14.91XA Suicide attempt, initial encounter; X71.1XXA Intentional self-harm by drowning and submersion while in swimming pool, initial encounter; F20.9 Schizophrenia, unspecified; F15.10 Other stimulant abuse, uncomplicated; E11.9 Type 2 diabetes mellitus without complications; K21.9 Gastro-esophageal reflux disease without esophagitis; F22 Delusional disorders

== ENCOUNTER 2019-02-22 11:01 | Emergency (ER) | payer MEDICARE ==
[~2019-02-22] VITALS: Ht 193 cm; Wt 100.0 kg
[2019-02-22 11:31] VITALS: Ht 193 cm; Wt 100.0 kg
[2019-02-22] MEDS ORDERED: TYLENOL #4 W/CO1 TAB PO (12:23)
[2019-02-22 12:47] VITALS: BP 94/59
== END 2019-02-22 12:38 | disposition home or self-care (01) ==
LOC: D.ER 11:01
DX: M48.56XA Collapsed vertebra, not elsewhere classified, lumbar region, initial encounter for fracture (principal); E11.9 Type 2 diabetes mellitus without complications

== ENCOUNTER 2019-03-29 15:59 | Emergency (ER) | payer MEDICARE ==
[~2019-03-29] VITALS: Ht 193 cm; Wt 100.0 kg
[~2019-03-29 15:59] MED LIST changes: +TYLENOL #4 W/CO1 TAB PO
[2019-03-29 16:12] VITALS: Ht 193 cm; Wt 100.0 kg
[2019-03-29 18:06] VITALS: BP 117/65
== END 2019-03-29 18:26 | disposition home or self-care (01) ==
LOC: D.ER 15:59
DX: S01.91XA Laceration without foreign body of unspecified part of head, initial encounter (principal); X58.XXXA Exposure to other specified factors, initial encounter

== ENCOUNTER 2020-01-08 15:02 | Emergency (ER) | payer MEDICARE ==
[~2020-01-08] VITALS: Ht 193 cm; Wt 100.0 kg
[2020-01-08 15:20] VITALS: Ht 193 cm; Wt 100.0 kg
[2020-01-08] MEDS ORDERED: HCTZ25 MG PO (15:25)
[2020-01-08] MEDS ORDERED: GLUCOTROL 5 MG T5 MG PO (15:25)
[2020-01-08 16:10] LABS: UDS - AMPHET POSITIVE QUAL (NEGATIVE); UDS - BARB NEGATIVE QUAL (NEGATIVE); UDS - BENZO NEGATIVE QUAL (NEGATIVE); UDS - COCAINE NEGATIVE QUAL (NEGATIVE); UDS - OPIATE NEGATIVE QUAL (NEGATIVE); UDS - PCP NEGATIVE QUAL (NEGATIVE); UDS - THC POSITIVE QUAL (NEGATIVE)
[2020-01-08 16:14] LABS: BILIRUBIN NEGATIVE (NEGATIVE); GLUCOSE NEGATIVE (NEGATIVE); KETONE SMALL mg/dL (NEGATIVE); NITRITE NEGATIVE (NEGATIVE); UROBILINOGEN NORMAL (NORMAL)
[2020-01-08 16:17] LABS: BASOPHILS 0.1 % (0-2); EOSINOPHILS 1.2 % (0-7); HEMATOCRIT 48.2 % (42.0-54.0); HEMOGLOBIN 16.5 g/dL (13.5-17.5); IMMATURE GRANULOCYTES 0.3 % (0-5); LITHIUM 1.95 mmol/L (0.60-1.20); LYMPHOCYTES 18.7 % (15-50); MCH 33.7 pg (26.0-34.0); MCHC 34.2 g/dL (31.0-37.0); MCV 98.4 fL (80.0-100.0); MEAN PLATELET VOLUME 11.6 fL (7.4-10.4); MONOCYTES 8.5 % (2-11); NEUTROPHILS 71.2 % (40-80); PLATELET COUNT 84 10x3/uL (130-400); RDW 13.6 % (11.5-14.5); SALICYLATES 3.4 mg/dL (2.8-20.0); WBC 11.6 10x3/uL (4.8-10.8)
[2020-01-08 16:21] LABS: CALC OSMOLALITY 278 mosm/kg (275-300); CALCIUM 8.9 mg/dL (8.5-10.1); CARBON DIOXIDE 24.1 mmol/L (21.0-32.0); CHLORIDE - SERUM 104 mmol/L (98-107); POTASSIUM - SERUM 3.9 mmol/L (3.5-5.1); SODIUM 137 mmol/L (136-145); UREA NITROGEN 22 mg/dL (7-18); eGFR NON AFRICAN AMERICAN 82 mL/min (90-120)
[2020-01-08 16:25] LABS: GLUCOSE 139 mg/dL (74-106)
[2020-01-08 16:26] LABS: ALBUMIN 3.6 g/dL (3.4-5.0); ALKALINE PHOSPHATASE 129 U/L (30-120); ALT (SGPT) 45 U/L (10-68); BILIRUBIN - TOTAL 1.02 mg/dL (0.2-1.3); MAGNESIUM - SERUM 2.1 mg/dL (1.8-2.4); PROTEIN - SERUM 7.3 g/dL (6.4-8.2)
--- NOTE | 2020-01-08 16:26 | NUR ---
DR. GONZALEZ NOTIFIED AND SITTER ORDERED. SITTER AT BEDSIDE. NOTIFIED CHARGE NURSE AND ATTENDING IN REGARDS TO ASSESSMENT FINDINGS. RESOURCES GIVEN TO PT AND REVIEWED. PT REFUSES SAFETY PLAN AT THIS TIME.
[2020-01-08 16:39] LABS: PLATELET ESTIMATE DECREASED
[2020-01-08 18:53] VITALS: BP 109/76
== END 2020-01-08 18:59 ==
LOC: D.ER 15:02
PROVIDERS: Family Medicine
DX: F20.9 Schizophrenia, unspecified (principal); F19.10 Other psychoactive substance abuse, uncomplicated; E11.65 Type 2 diabetes mellitus with hyperglycemia; R45.851 Suicidal ideations; R79.89 Other specified abnormal findings of blood chemistry; K21.9 Gastro-esophageal reflux disease without esophagitis; Z79.84 Long term (current) use of oral hypoglycemic drugs; R44.1 Visual hallucinations; R44.0 Auditory hallucinations